=== PATIENT | female | born 1935 | race Caucasian/White ===

== ENCOUNTER 2017-12-13 14:46 | Emergency (ER) | payer MEDICARE, OTHER, SELFPAY ==
[2017-12-13 14:48] VITALS: BP 161/68; PULSE 71; RESP 20; TEMP 36.5; O2SAT 98; BMI 20.7
--- NOTE | 2017-12-13 14:51 | DI.RAD.S_ITS ---
PROCEDURE: XR RIBS RT MIN 3V W CXR 1V INDICATIONS: injury, pain TECHNIQUE: 2 views of the right ribs were acquired, along with a single view chest. COMPARISON: None. FINDINGS: Surgical changes and devices: None. Bones and chest wall: Slightly displaced fracture involving right posterior lateral seventh rib is seen. No suspicious bony lesions. Overlying soft tissues appear unremarkable. Lungs and pleura: No pleural effusions or pneumothorax. Lungs appear clear. Mediastinum: Mediastinal contours appear normal. Heart size is normal. IMPRESSION: Slightly displaced right posterolateral seventh rib fracture. Dictated by: Placido Chamorro M.D. on 12/13/2017 at 15:26 Approved by: Placido Chamorro M.D. on 12/13/2017 at 15:29
--- NOTE | 2017-12-13 16:11 | DI.CT.S_ITS ---
PROCEDURE: CT HEAD/BRAIN WO CON INDICATIONS: ground level fall TECHNIQUE: Noncontrast 4.5 mm thick angled axial sections acquired from the foramen magnum to the vertex, with coronal and sagittal reformats. For radiation dose reduction, the following was used: automated exposure control, adjustment of mA and/or kV according to patient size. COMPARISON: None. FINDINGS: Image quality: Excellent. CSF spaces: Basal cisterns are patent. No extra-axial fluid collections. The ventricles are symmetric in size and shape. Brain: No intracranial bleeds or masses. There is cerebral volume loss for age, with resultant ventricular and sulcal prominence. There are periventricular and deep white matter chronic small vessel ischemic changes. There is intracranial internal carotid artery atherosclerosis. Skull and face: Calvarium and visualized facial bones appear intact, without suspicious lesions. Sinuses: Visualized sinuses and mastoids are clear. IMPRESSION: No acute intracranial disease process. Dictated by: Gloria Parker MD, PhD on 12/13/2017 at 16:30 Approved by: Gloria Parker MD, PhD on 12/13/2017 at 16:33
--- NOTE | 2017-12-13 16:35 | PC.NURSE ---
Spoke w/ Dr. Giraldo's office. They have no history of tdap on file for patient.
--- NOTE | 2017-12-13 18:09 | ED.FALL ---
HPI - Fall <SOHEILA Genao-BC - Last Filed: 12/13/17 22:54> General Chief Complaint: Fall Stated Complaint: glf, hit her head on the floor Time Seen by Provider: 12/13/17 16:53 Source: patient and family Mode of arrival: ambulatory Limitations: no limitations History of Present Illness HPI Narrative: Patient presents after ground level fall this afternoon. She states she tripped over her dog. She denies any syncope or loss of consciousness. She complains of a laceration on her forehead above her right eye. She also complains of rib pain. She denies any dizziness, lightheadedness, loss of consciousness, neck pain or back pain. She denies any abdominal pain. Patient is adamant she fell when she tripped and did not have an episode of syncope. Related Data Home Medications Medication Instructions Recorded Confirmed B.ANI/L.ACI/L.PRAFUL/L.PLAN/L.KO 1 cap PO QDAY #0 12/03/10 (Probiotic Formula Capsule) Calcium Carbonate/Vitamin D 1 cap PO BID #0 12/03/10 (#CALCIUM) aspirin 81 mg PO QDAY #0 12/03/10 fexofenadine 180 mg PO QDAY #0 12/03/10 hydrochlorothiazide 25 mg PO QDAY #0 12/03/10 12/13/17 simvastatin 40 mg PO HS #0 12/03/10 12/13/17 epinephrine 1 dose IM PRN PRN 12/13/17 12/13/17 escitalopram oxalate 1 tab PO DAILY 12/13/17 12/13/17 fluticasone 2 spray INTRANASAL DAILY 12/13/17 12/13/17 omeprazole 1 cap PO DAILY 12/13/17 12/13/17 Previous Rx's Medication Instructions Recorded naproxen 250 mg PO BID PRN #30 tab 12/13/17 Allergies Allergy/AdvReac Type Severity Reaction Status Date / Time gluten [GLUTEN] Allergy Unknown diarrhea Unverified 06/07/17 12:00 Review of Systems <BRANDYN Genao - Last Filed: 12/13/17 22:54> Review of Systems GENERAL: Denies chills, fatigue, malaise, fever, sweats. HEENT: Denies sinus pain, ear pain, sore throat, difficulty swallowing, dizziness. RESPIRATORY: see HPI CARDIOVASCULAR: Denies chest pain, palpitations, orthopnea, edema, GASTROINTESTINAL: Denies nausea, vomiting, abdominal pain, diarrhea, constipation, melena. : Denies dysuria, frequency, incontinence, hematuria, urinary retention. MUSCULOSKELETAL: denies weakness, joint pain, or bony pain SKIN: See HPI NEUROLOGIC: Denies weakness, headache, numbness, change in speech, confusion, seizures, incoordination. PSYCHIATRIC: No concerning psychosocial issues. 12 point review of systems is negative except for those stated above Exam <Jayla Madden, SCRAP CHARGER-BC - Last Filed: 12/13/17 22:54> Narrative Exam Narrative: GENERAL: This is a well-nourished, well-developed patient, Lying on stretcher HEAD: Atraumatic. Normocephalic. No temporal or scalp tenderness. No pain to palpation of facial bones. No instability Or deformities palpated. EYES: Pupils equal round and reactive. Extraocular motions intact. No scleral icterus. No injection or drainage. ENT: Nose without bleeding, purulent drainage or septal hematoma. Throat without erythema, tonsillar hypertrophy or exudate. Uvula midline. Airway patent. NECK: Trachea midline. No JVD or lymphadenopathy. Supple, nontender, no meningeal signs. CARDIOVASCULAR: Regular rate and rhythm without murmurs, gallops, or rubs. RESPIRATORY: Clear to auscultation. Breath sounds equal bilaterally. No wheezes, rales, or rhonchi. Patient has pain to palpation right-sided of chest wall. Pain on anterior posterior chest wall compression as well as lateral chest wall compression. GASTROINTESTINAL: Abdomen soft, non-tender, nondistended. No hepato-splenomegaly, or palpable masses. No guarding. EXTREMITIES: No clubbing, cyanosis, or edema. No joint tenderness, effusion, or edema noted. BACK: Nontender without deformity or crepitance. No flank tenderness. no pain to palpation of C-spine or T-spine. NEURO: AOx3. Using all extremities equally. Stable gait. SKIN: 1 cm well-approximated linear laceration superior to right eye through eyebrow area. No obvious foreign bodies. No tendon or muscle involvement. Surrounded by ecchymosis. Initial Vital Signs Initial Vital Signs: Vital Signs Temperature 97.7 F 12/13/17 14:48 Pulse Rate 71 12/13/17 14:48 Respiratory Rate 20 12/13/17 14:48 Blood Pressure 161/68 H 12/13/17 14:48 Pulse Oximetry 98 12/13/17 14:48 <Roberto Coyle DO - Last Filed: 12/14/17 05:53> Initial Vital Signs Initial Vital Signs: Vital Signs Temperature 97.7 F 12/13/17 14:48 Pulse Rate 71 12/13/17 14:48 Respiratory Rate 20 12/13/17 14:48 Blood Pressure 161/68 H 12/13/17 14:48 Pulse Oximetry 98 12/13/17 14:48 Procedures <BRANDYN Genao - Last Filed: 12/13/17 22:54> Laceration Repair Laceration 1: Site: face Side (If applicable): right Size (cm): 1 Description: linear Depth: simple, single layer Pre-repair: wound explored and irrigated extensively ( sterile water and Hibiclens.) Skin layer closed with: other (dermabond) Course <BRANDYN Genao - Last Filed: 12/13/17 22:54> Orders Ordered: Discontinued Medications Ketorolac Tromethamine (Toradol) 30 mg IM NOW ONE Stop: 12/13/17 18:03 Last Admin: 12/13/17 18:33 Dose: 30 mg Vital Signs - 8 hr 12/13/17 19:43 Pulse Rate 75 Respiratory Rate 18 Blood Pressure 148/64 H Pulse Oximetry 97 <Roberto Coyle DO - Last Filed: 12/14/17 05:53> Orders Ordered: Discontinued Medications Ketorolac Tromethamine (Toradol) 30 mg IM NOW ONE Stop: 12/13/17 18:03 Last Admin: 12/13/17 18:33 Dose: 30 mg Vital Signs - 8 hr 12/13/17 19:43 Pulse Rate 75 Respiratory Rate 18 Blood Pressure 148/64 H Pulse Oximetry 97 MDM - Fall <BRANDYN Genao - Last Filed: 12/13/17 22:54> Imaging Data Chest x-ray: Radiologist's impression: [address] [address] XRay Report Signed Patient: Lupe Jean LMR#: [id number] : 5Acct:[id number] Age/Sex: 82 / FDate of Service: 12/13/17 Loc: ED Accession Number: [id number] Procedure: XR ribs RT min 3V w CXR1V Ordering Provider: Danyelle Singh MD PROCEDURE: XR RIBS RT MIN 3V W CXR 1V INDICATIONS: injury, pain TECHNIQUE: 2 views of the right ribs were acquired, along with a single view chest. COMPARISON: None. FINDINGS: Surgical changes and devices: None. Bones and chest wall: Slightly displaced fracture involving right posterior lateral seventh rib is seen. No suspicious bony lesions. Overlying soft tissues appear unremarkable. Lungs and pleura: No pleural effusions or pneumothorax. Lungs appear clear. Mediastinum: Mediastinal contours appear normal. Heart size is normal. IMPRESSION: Slightly displaced right posterolateral seventh rib fracture. Dictated by: Placido Chamorro M.D. on 12/13/2017 at 15:26 Approved by: Placido Chamorro M.D. on 12/13/2017 at 15:29 CT scan - head: Radiologist's impression: 1 Diagnostics DATE TYPE STATUS AUTHOR 12/13/17 16:11 Gloria Parker 12/13/17 14:51 Placido ChamorroYared cosbyluca Johansen 82, [id number] DEP ER, ED - Main ED: [place] 152.4cm 48.081kg BMI: 20.7kg/m? Fall Search Chart NF - Not included in interaction checking gluten (GLUTEN) diarrhea ONSET Today 19:43 [place] [address] CT Scan Report Signed Patient: uLpe Jean LMR#: [id number] : 5Acct:[id number] Age/Sex: 82 / FDate of Service: 12/13/17 Loc: ED Accession Number: [id number] Procedure: CT head/brain wo con Ordering Provider: Jayla Madden PROCEDURE: CT HEAD/BRAIN WO CON INDICATIONS: ground level fall TECHNIQUE: Noncontrast 4.5 mm thick angled axial sections acquired from the foramen magnum to the vertex, with coronal and sagittal reformats. For radiation dose reduction, the following was used: automated exposure control, adjustment of mA and/or kV according to patient size. COMPARISON: None. FINDINGS: Image quality: Excellent. CSF spaces: Basal cisterns are patent. No extra-axial fluid collections. The ventricles are symmetric in size and shape. Brain: No intracranial bleeds or masses. There is cerebral volume loss for age, with resultant ventricular and sulcal prominence. There are periventricular and deep white matter chronic small vessel ischemic changes. There is intracranial internal carotid artery atherosclerosis. Skull and face: Calvarium and visualized facial bones appear intact, without suspicious lesions. Sinuses: Visualized sinuses and mastoids are clear. IMPRESSION: No acute intracranial disease process. Dictated by: Gloria Parker MD, PhD on 12/13/2017 at 16:30 Approved by: Gloria Parker MD, PhD on 12/13/2017 at 16:33 [facility] Narrative Medical decision making narrative: patient presents with chief complaint of laceration after ground level fall. She also complained of rib pain. She was found have a rib fracture as well as a laceration. She had a negative head CT. I offered her pain medications several times throughout her stay for her rib fractures but she declined. I offered her narcotic pain medication prescription upon discharge which she also declined. She was also evaluated by respiratory therapist to work on incentive spirometry given her rib fracture. I closed the laceration with Dermabond and she tolerated ambulation trial after. I discussed monitoring for signs and symptoms of infection. She had no questions or concerns upon discharge. I discussed return precautions of signs of infection, confusion any acute concerns. patient and daughter no questions or concerns upon discharge. Discharge Plan Departure Patient Disposition: Home Clinical Impression: Fall from ground level, Laceration, Closed rib fracture Discharge Date/Time: 12/13/17 19:00 Interventions: ED Discharge Assessment Last Done: 12/13/17 19:43 Instructions: DI for Rib Fracture, DI for Laceration Repair With Dermabond, DI for Contusion, How to Prevent Falls Activity Restrictions/Additional Instructions: Please follow up with primary care provider. Please continue to take deep breathing. Please take [id number] pain medication as needed and able. Please use ice. Come back to the emergency department for acute concerns. Please continue to use the incentive spirometer. Prescriptions: New naproxen 250 mg tablet 250 mg PO BID PRN (Reason: pain) Qty: 30 RF: 0 No Action fexofenadine 180 MG tablet 180 mg PO QDAY Qty: 0 RF: 0 aspirin 81 MG tablet,delayed release (DR/EC) 81 mg PO QDAY Qty: 0 RF: 0 Calcium Carbonate/Vitamin D (#CALCIUM) 1 cap PO BID Qty: 0 RF: 0 B.ANI/L.ACI/L.PRAFUL/L.PLAN/L.KO (Probiotic Formula Capsule) 1 cap PO QDAY Qty: 0 RF: 0 hydrochlorothiazide 25 MG tablet 25 mg PO QDAY Qty: 0 RF: 0 simvastatin 40 MG tablet 40 mg PO HS Qty: 0 RF: 0 omeprazole 40 mg capsule,delayed release(DR/EC) 1 cap PO DAILY RF: 0 epinephrine 0.3 mg/0.3 mL auto-injector 1 dose IM PRN PRN (Reason: Anaphylaxis) RF: 0 fluticasone 50 mcg/actuation spray,suspension 2 spray Intranasal DAILY RF: 0 escitalopram oxalate 10 mg tablet 1 tab PO DAILY RF: 0 Referrals: Mauricio Giraldo MD [Primary Care Provider] - <Roberto Coyle DO - Last Filed: 12/14/17 05:53> Cosign ED Attending Cosignature Attestation: I was immediately available in the department for consultation. Documentation has been reviewed. I agree with assessment and plan.
--- NOTE | 2017-12-13 18:12 | ED_ITS ---
HPI - Fall <SOHEILA Genao-BC - Last Filed: 12/13/17 22:54> General Chief Complaint: Fall Stated Complaint: glf, hit her head on the floor Time Seen by Provider: 12/13/17 16:53 Source: patient and family Mode of arrival: ambulatory Limitations: no limitations History of Present Illness HPI Narrative: Patient presents after ground level fall this afternoon. She states she tripped over her dog. She denies any syncope or loss of consciousness. She complains of a laceration on her forehead above her right eye. She also complains of rib pain. She denies any dizziness, lightheadedness , loss of consciousness, neck pain or back pain. She denies any abdominal pain. Patient is adamant she fell when she tripped and did not have an episode of syncope. Related Data Home Medications Medication Instructions Recorded Confirmed B.ANI/L.ACI/L.PRAFUL/L.PLAN/L.KO 1 cap PO QDAY #0 12/03/10 (Probiotic Formula Capsule) Calcium Carbonate/Vitamin D 1 cap PO BID #0 12/03/10 (#CALCIUM) aspirin 81 mg PO QDAY #0 12/03/10 fexofenadine 180 mg PO QDAY #0 12/03/10 hydrochlorothiazide 25 mg PO QDAY #0 12/03/10 12/13/17 simvastatin 40 mg PO HS #0 12/03/10 12/13/17 epinephrine 1 dose IM PRN PRN 12/13/17 12/13/17 escitalopram oxalate 1 tab PO DAILY 12/13/17 12/13/17 fluticasone 2 spray INTRANASAL DAILY 12/13/17 12/13/17 omeprazole 1 cap PO DAILY 12/13/17 12/13/17 Previous Rx's Medication Instructions Recorded naproxen 250 mg PO BID PRN #30 tab 12/13/17 Allergies Allergy/AdvReac Type Severity Reaction Status Date / Time gluten [GLUTEN] Allergy Unknown diarrhea Unverified 06/07/17 12:00 Review of Systems <BRANDYN Genao - Last Filed: 12/13/17 22:54> Review of Systems GENERAL: Denies chills, fatigue, malaise, fever, sweats. HEENT: Denies sinus pain, ear pain, sore throat, difficulty swallowing, dizziness. RESPIRATORY: see HPI CARDIOVASCULAR: Denies chest pain, palpitations, orthopnea, edema, GASTROINTESTINAL: Denies nausea, vomiting, abdominal pain, diarrhea, constipation, melena. : Denies dysuria, frequency, incontinence, hematuria, urinary retention. MUSCULOSKELETAL: denies weakness, joint pain, or bony pain SKIN: See HPI NEUROLOGIC: Denies weakness, headache, numbness, change in speech, confusion, seizures, incoordination. PSYCHIATRIC: No concerning psychosocial issues. 12 point review of systems is negative except for those stated above Exam <Jayla Madden, PULVERIZER MILL OPERATOR-BC - Last Filed: 12/13/17 22:54> Narrative Exam Narrative: GENERAL: This is a well-nourished, well-developed patient, Lying on stretcher HEAD: Atraumatic. Normocephalic. No temporal or scalp tenderness. No pain to palpation of facial bones. No instability Or deformities palpated. EYES: Pupils equal round and reactive. Extraocular motions intact. No scleral icterus. No injection or drainage. ENT: Nose without bleeding, purulent drainage or septal hematoma. Throat without erythema, tonsillar hypertrophy or exudate. Uvula midline. Airway patent. NECK: Trachea midline. No JVD or lymphadenopathy. Supple, nontender, no meningeal signs. CARDIOVASCULAR: Regular rate and rhythm without murmurs, gallops, or rubs. RESPIRATORY: Clear to auscultation. Breath sounds equal bilaterally. No wheezes , rales, or rhonchi. Patient has pain to palpation right-sided of chest wall. Pain on anterior posterior chest wall compression as well as lateral chest wall compression. GASTROINTESTINAL: Abdomen soft, non-tender, nondistended. No hepato-splenomegaly , or palpable masses. No guarding. EXTREMITIES: No clubbing, cyanosis, or edema. No joint tenderness, effusion, or edema noted. BACK: Nontender without deformity or crepitance. No flank tenderness. no pain to palpation of C-spine or T-spine. NEURO: AOx3. Using all extremities equally. Stable gait. SKIN: 1 cm well-approximated linear laceration superior to right eye through eyebrow area. No obvious foreign bodies. No tendon or muscle involvement. Surrounded by ecchymosis. Initial Vital Signs Initial Vital Signs: Vital Signs Temperature 97.7 F 12/13/17 14:48 Pulse Rate 71 12/13/17 14:48 Respiratory Rate 20 12/13/17 14:48 Blood Pressure 161/68 H 12/13/17 14:48 Pulse Oximetry 98 12/13/17 14:48 <Roberto Coyle DO - Last Filed: 12/14/17 05:53> Initial Vital Signs Initial Vital Signs: Vital Signs Temperature 97.7 F 12/13/17 14:48 Pulse Rate 71 12/13/17 14:48 Respiratory Rate 20 12/13/17 14:48 Blood Pressure 161/68 H 12/13/17 14:48 Pulse Oximetry 98 12/13/17 14:48 Procedures <BRANDYN Genao - Last Filed: 12/13/17 22:54> Laceration Repair Laceration 1: Site: face Side (If applicable): right Size (cm): 1 Description: linear Depth: simple, single layer Pre-repair: wound explored and irrigated extensively ( sterile water and Hibiclens.) Skin layer closed with: other (dermabond) Course <BRANDYN Genao - Last Filed: 12/13/17 22:54> Orders Ordered: Discontinued Medications Ketorolac Tromethamine (Toradol) 30 mg IM NOW ONE Stop: 12/13/17 18:03 Last Admin: 12/13/17 18:33 Dose: 30 mg Vital Signs - 8 hr 12/13/17 19:43 Pulse Rate 75 Respiratory Rate 18 Blood Pressure 148/64 H Pulse Oximetry 97 <Roberto Coyle DO - Last Filed: 12/14/17 05:53> Orders Ordered: Discontinued Medications Ketorolac Tromethamine (Toradol) 30 mg IM NOW ONE Stop: 12/13/17 18:03 Last Admin: 12/13/17 18:33 Dose: 30 mg Vital Signs - 8 hr 12/13/17 19:43 Pulse Rate 75 Respiratory Rate 18 Blood Pressure 148/64 H Pulse Oximetry 97 MDM - Fall <BRANDYN Genao - Last Filed: 12/13/17 22:54> Imaging Data Chest x-ray: Radiologist's impression: [address] [address] XRay Report Signed Patient: Lupe Jean LMR#: [id number] : 5Acct:[id number] Age/Sex: 82 / FDate of Service: 12/13/17 Loc: ED Accession Number: [id number] Procedure: XR ribs RT min 3V w CXR1V Ordering Provider: Danyelle Singh MD PROCEDURE: XR RIBS RT MIN 3V W CXR 1V INDICATIONS: injury, pain TECHNIQUE: 2 views of the right ribs were acquired, along with a single view chest. COMPARISON: None. FINDINGS: Surgical changes and devices: None. Bones and chest wall: Slightly displaced fracture involving right posterior lateral seventh rib is seen. No suspicious bony lesions. Overlying soft tissues appear unremarkable. Lungs and pleura: No pleural effusions or pneumothorax. Lungs appear clear. Mediastinum: Mediastinal contours appear normal. Heart size is normal. IMPRESSION: Slightly displaced right posterolateral seventh rib fracture. Dictated by: Placido Chamorro M.D. on 12/13/2017 at 15:26 Approved by: Placido Chamorro M.D. on 12/13/2017 at 15:29 CT scan - head: Radiologist's impression: 1 Diagnostics DATE TYPE STATUS AUTHOR 12/13/17 16:11 Gloria Parker 12/13/17 14:51 Placido ChamorroYared cosbyluca Johansen 82, [id number] DEP ER, ED - Main ED: [place] 152.4cm 48.081kg BMI: 20.7kg/m? Fall Search Chart NF - Not included in interaction checking gluten (GLUTEN) diarrhea ONSET Today 19:43 [place] [address] CT Scan Report Signed Patient: Lupe Jean LMR#: [id number] : 5Acct:[id number] Age/Sex: 82 / FDate of Service: 12/13/17 Loc: ED Accession Number: [id number] Procedure: CT head/brain wo con Ordering Provider: Jayla Madden PROCEDURE: CT HEAD/BRAIN WO CON INDICATIONS: ground level fall TECHNIQUE: Noncontrast 4.5 mm thick angled axial sections acquired from the foramen magnum to the vertex, with coronal and sagittal reformats. For radiation dose reduction, the following was used: automated exposure control, adjustment of mA and/or kV according to patient size. COMPARISON: None. FINDINGS: Image quality: Excellent. CSF spaces: Basal cisterns are patent. No extra-axial fluid collections. The ventricles are symmetric in size and shape. Brain: No intracranial bleeds or masses. There is cerebral volume loss for age , with resultant ventricular and sulcal prominence. There are periventricular and deep white matter chronic small vessel ischemic changes. There is intracranial internal carotid artery atherosclerosis. Skull and face: Calvarium and visualized facial bones appear intact, without suspicious lesions. Sinuses: Visualized sinuses and mastoids are clear. IMPRESSION: No acute intracranial disease process. Dictated by: Gloria Parker MD, PhD on 12/13/2017 at 16:30 Approved by: Gloria Parker MD, PhD on 12/13/2017 at 16:33 [facility] Narrative Medical decision making narrative: patient presents with chief complaint of laceration after ground level fall. She also complained of rib pain. She was found have a rib fracture as well as a laceration. She had a negative head CT. I offered her pain medications several times throughout her stay for her rib fractures but she declined. I offered her narcotic pain medication prescription upon discharge which she also declined. She was also evaluated by respiratory therapist to work on incentive spirometry given her rib fracture. I closed the laceration with Dermabond and she tolerated ambulation trial after. I discussed monitoring for signs and symptoms of infection. She had no questions or concerns upon discharge. I discussed return precautions of signs of infection, confusion any acute concerns. patient and daughter no questions or concerns upon discharge. Discharge Plan Departure Patient Disposition: Home Clinical Impression: Fall from ground level, Laceration, Closed rib fracture Discharge Date/Time: 12/13/17 19:00 Interventions: ED Discharge Assessment Last Done: 12/13/17 19:43 Instructions: DI for Rib Fracture, DI for Laceration Repair With Dermabond, DI for Contusion, How to Prevent Falls Activity Restrictions/Additional Instructions: Please follow up with primary care provider. Please continue to take deep breathing. Please take [id number] pain medication as needed and able. Please use ice. Come back to the emergency department for acute concerns. Please continue to use the incentive spirometer. Prescriptions: New naproxen 250 mg tablet 250 mg PO BID PRN (Reason: pain) Qty: 30 RF: 0 No Action fexofenadine 180 MG tablet 180 mg PO QDAY Qty: 0 RF: 0 aspirin 81 MG tablet,delayed release (DR/EC) 81 mg PO QDAY Qty: 0 RF: 0 Calcium Carbonate/Vitamin D (#CALCIUM) 1 cap PO BID Qty: 0 RF: 0 B.ANI/L.ACI/L.PRAFUL/L.PLAN/L.KO (Probiotic Formula Capsule) 1 cap PO QDAY Qty: 0 RF: 0 hydrochlorothiazide 25 MG tablet 25 mg PO QDAY Qty: 0 RF: 0 simvastatin 40 MG tablet 40 mg PO HS Qty: 0 RF: 0 omeprazole 40 mg capsule,delayed release(DR/EC) 1 cap PO DAILY RF: 0 epinephrine 0.3 mg/0.3 mL auto-injector 1 dose IM PRN PRN (Reason: Anaphylaxis) RF: 0 fluticasone 50 mcg/actuation spray,suspension 2 spray Intranasal DAILY RF: 0 escitalopram oxalate 10 mg tablet 1 tab PO DAILY RF: 0 Referrals: Mauricio Giraldo MD [Primary Care Provider] - <Robetro Coyle DO - Last Filed: 12/14/17 05:53> Cosign ED Attending Cosignature Attestation: I was immediately available in the department for consultation. Documentation has been reviewed. I agree with assessment and plan.
[2017-12-13] MEDS: KETOROLAC 60 MG/2 ML VIAL 30 MG IM (18:33)
[2017-12-13 19:43] VITALS: BP 148/64; PULSE 75; RESP 18; O2SAT 97
== END 2017-12-13 19:00 | disposition home or self-care (01) ==
PROVIDERS: Emergency Provider Nurse Practitioner Family; PCP Internal Medicine
DX: S01.81XA Laceration without foreign body of other part of head, initial encounter (principal); S22.39XA Fracture of one rib, unspecified side, initial encounter for closed fracture; W01.198A Fall on same level from slipping, tripping and stumbling with subsequent striking against other object, initial encounter
CPT/HCPCS: 70450; 71101; 96372; 99283; 99284; J1885

== ENCOUNTER → 2018-03-03 10:30 | Outpatient (CLI) | payer MEDICARE, OTHER, SELFPAY ==
[2018-03-03 12:27] LABS: Adenovirus F 40/41 Not Detected (Not Detect); Astrovirus Not Detected (Not Detect); Campylobacter Not Detected (Not Detect); Clostridium difficile toxin AB Not Detected (Not Detect); Cryptosporidium Not Detected (Not Detect); Cyclospora cayetanensis Not Detected (Not Detect); Entamoeba histolytica Not Detected (Not Detect); Enteroaggregative E.coli Not Detected (Not Detect); Enteropathogenic E.coli Not Detected (Not Detect); Enterotoxigenic E.coli It/st Not Detected (Not Detect); Giardia lamblia Not Detected (Not Detect); Norovirus GI/GII Detected (Not Detect); Plesiomonsa shigelloides Not Detected (Not Detect); Rotavirus A Not Detected (Not Detect); Salmonella Not Detected (Not Detect); Sapovirus Not Detected (Not Detect); Shiga-like toxin-prod E.coli Not Detected (Not Detect); Shigella/Enteroinvasive E.coli Not Detected (Not Detect); Vibrio Not Detected (Not Detect); Vibrio cholerae Not Detected (Not Detect); Yersinia enterocolitica Not Detected (Not Detect)
== END ==
PROVIDERS: PCP Internal Medicine; Visit Provider Physician Assistant
DX: R19.7 Diarrhea, unspecified (principal)
CPT/HCPCS: 87507

== ENCOUNTER → 2018-03-28 12:19 | Outpatient (CLI) | payer MEDICARE, OTHER, SELFPAY ==
--- NOTE | 2018-03-28 | DI.MG.S_ITS ---
BILATERAL DIGITAL SCREENING MAMMOGRAM 3D/2D WITH CAD: 03/28/2018 CLINICAL: Routine screening. Comparison is made to exams dated: 11/24/2016 mammogram, 11/19/2015 mammogram, and 11/12/2014 mammogram - [facility]. The tissue of both breasts is heterogeneously dense. This may lower the sensitivity of mammography. Current study was also evaluated with a Computer Aided Detection (CAD) system. No significant masses, calcifications, or other findings are seen in either breast. There has been no significant interval change. IMPRESSION: NEGATIVE There is no mammographic evidence of malignancy. A 1 year screening mammogram is recommended. This exam was interpreted at Station ID: [id number]. NOTE: For mammograms, a report in lay terms will be sent to the patient. Approximately 15% of breast malignancies will not be visualized mammographically. In the management of a palpable breast mass, a negative mammogram must not discourage biopsy of a clinically suspicious lesion. Electronically Signed By: Jhoana mccullough/[email or web address]:03/28/2018 16:30:02 letter sent: Normal Exam ACR BI-RADS Category 1: Negative [id number]
== END ==
PROVIDERS: PCP Internal Medicine; Visit Provider Internal Medicine
DX: Z12.31 Encounter for screening mammogram for malignant neoplasm of breast (principal); M85.88 Other specified disorders of bone density and structure, other site; M85.851 Other specified disorders of bone density and structure, right thigh; Z78.0 Asymptomatic menopausal state; S22.31XA Fracture of one rib, right side, initial encounter for closed fracture; Z87.891 Personal history of nicotine dependence
CPT/HCPCS: 77063; 77067; 77080

== ENCOUNTER → 2018-04-30 09:16 | Outpatient (CLI) | payer MEDICARE, OTHER, SELFPAY ==
[2018-04-30 09:53] LABS: Add Manual Diff / Slide Review NO; Basophils Absolute Auto 0 /uL (0-100); Basophils Percent Auto 0.7 % (0-2); Eosinophils Absolute Auto 100 /uL (0-450); Hematocrit 37.4 % (36-46); Hemoglobin 12.2 g/dL (12.0-16.0); Lymphocytes Absolute Auto 1800 /uL (1100-4500); Lymphocytes Percent Auto 27.3 % (25-40); Mean Corpuscular HGB Conc 32.7 % (30-36); Mean Corpuscular Hemoglobin 28.1 PG (26-34); Mean Corpuscular Volume 85.8 fL (80-100); Monocytes Absolute Auto 600 /uL (0-900); Monocytes Percent Auto 8.4 % (3-14); Neutrophils Absolute Auto 4100 /uL (1500-7000); Neutrophils Percent Auto 61.6 % (50-75); Platelet Count 315 X10^3/uL (150-400); Red Blood Cell Count 4.36 X10^6/uL (4.0-5.2); White Blood Cell Count 6.6 X10^3/uL (4.5-11.0)
[2018-04-30 10:41] LABS: Alanine Aminotransferase 23 IU/L (9-52); Albumin 4.2 g/dL (3.5-5.0); Albumin Globulin Ratio 1.3 (1.0-2.8); Alkaline Phosphatase 62 U/L (38-126); Aspartate Aminotransferase 27 IU/L (14-36); BUN Creatinine Ratio 19.1 (6-22); Bilirubin Total 0.5 mg/dL (0.2-1.3); Blood Urea Nitrogen 21 mg/dL (7-17); Calcium 9.8 mg/dL (8.4-10.2); Carbon Dioxide 31 mmol/L (22-32); Chloride 98 mmol/L (98-107); Cholesterol 141 mg/dL (140-199); Estimated Glomerular Filt Rate 47.4 mL/min (>60); Globulin 3.3 g/dL (1.7-4.1); Glucose 88 mg/dL (80-110); HDL Cholesterol 35 mg/dL (40-60); HEMOLYSIS < 15 (0-50); LDL Cholesterol Calculated 81 mg/dL (<100); Potassium 4.1 mmol/L (3.4-5.1); Sodium 139 mmol/L (137-145); Total Protein 7.5 g/dL (6.3-8.2); Triglycerides 123 mg/dL (35-150)
== END ==
PROVIDERS: PCP Internal Medicine; Visit Provider Internal Medicine
DX: M48.061 Spinal stenosis, lumbar region without neurogenic claudication (principal); M85.80 Other specified disorders of bone density and structure, unspecified site; K58.0 Irritable bowel syndrome with diarrhea; I10 Essential (primary) hypertension; E78.00 Pure hypercholesterolemia, unspecified
CPT/HCPCS: 36415; 80053; 80061; 82306; 85025

== ENCOUNTER → 2018-05-29 12:39 | Outpatient (CLI) | payer MEDICARE, OTHER, SELFPAY ==
[2018-05-29 13:30] LABS: Occult Blood 1 Negative (Negative)
== END ==
PROVIDERS: PCP Internal Medicine; Visit Provider Internal Medicine
DX: R19.7 Diarrhea, unspecified (principal)
CPT/HCPCS: 82270; 82710; 87045; 87205; 87899

== ENCOUNTER → 2018-05-30 13:05 | Outpatient (CLI) | payer MEDICARE, OTHER, SELFPAY ==
[2018-05-30 13:28] LABS: Add Manual Diff / Slide Review NO; Basophils Absolute Auto 0 /uL (0-100); Basophils Percent Auto 0.4 % (0-2); Eosinophils Absolute Auto 300 /uL (0-450); Eosinophils Percent Auto 2.7 % (2-4); Hematocrit 34.8 % (36-46); Hemoglobin 11.4 g/dL (12.0-16.0); Lymphocytes Absolute Auto 1700 /uL (1100-4500); Lymphocytes Percent Auto 17.6 % (25-40); Mean Corpuscular HGB Conc 32.7 % (30-36); Mean Corpuscular Hemoglobin 27.8 PG (26-34); Monocytes Absolute Auto 1100 /uL (0-900); Monocytes Percent Auto 11.3 % (3-14); Neutrophils Absolute Auto 6500 /uL (1500-7000); Platelet Count 322 X10^3/uL (150-400); Red Cell Distribution Width 12.5 % (11.6-14.8); White Blood Cell Count 9.5 X10^3/uL (4.5-11.0)
[2018-05-30 14:22] LABS: Blood Urea Nitrogen 34 mg/dL (7-17); Calcium 8.7 mg/dL (8.4-10.2); Carbon Dioxide 28 mmol/L (22-32); Chloride 98 mmol/L (98-107); Estimated Glomerular Filt Rate 28.7 mL/min (>60); Glucose 64 mg/dL (80-110); HEMOLYSIS < 15 (0-50); Potassium 4.1 mmol/L (3.4-5.1); Sodium 134 mmol/L (137-145)
== END ==
PROVIDERS: PCP Internal Medicine; Visit Provider Internal Medicine
DX: N18.3 Chronic kidney disease, stage 3 (moderate) (principal)
CPT/HCPCS: 36415; 80048; 85025

== ENCOUNTER → 2018-06-29 13:33 | Outpatient (CLI) | payer MEDICARE, OTHER, SELFPAY ==
--- NOTE | 2018-06-29 | DI.US.S_ITS ---
PROCEDURE: US RENAL COMPLETE INDICATIONS: ACUTE ON CHRONIC RENAL FAILURE TECHNIQUE: Real-time scanning was performed of the kidneys and bladder, with image documentation. COMPARISON: , US, RENAL OR RETROPERITONEAL LIMIT, 07/22/2014, 14:56. FINDINGS: Kidneys: Kidneys are normal in size. Right kidney measures 9.2 cm long; left kidney measures 9.9 cm long. Right renal cortical thickness is 0.8 cm; left renal cortical thickness is 1.2 cm. Renal cortical echotexture is normal. No hydronephrosis or nephrolithiasis. No suspicious solid mass lesions. Bladder: Pre-void bladder volume is 91 mL. Post-void residual is 54 mL. Pre-void images demonstrate no intraluminal masses or stones. On pre-void images, neither ureteral jets are noted with color Doppler interrogation. (Of note, ureteral jets may not be detectable in up to 25% of cases due to insufficient differences in specific gravity between ureteral and bladder urine). Miscellaneous: No free pelvic fluid. IMPRESSION: 1. Mild right renal cortical thinning; otherwise normal kidneys. 2. 54 cc urinary bladder postvoid residual. Dictated by: Liam Kiran [facility] Interpreted: Zofia Stanton MD on 06/29/2018 at 16:27 Approved by: Zofia Stanton M.D. on 07/02/2018 at 17:32
== END ==
PROVIDERS: PCP Internal Medicine; Visit Provider Student in an Organized Health Care Education/Training Program
DX: N17.9 Acute kidney failure, unspecified (principal); N18.9 Chronic kidney disease, unspecified
CPT/HCPCS: 76770

== ENCOUNTER → 2018-07-04 13:20 | Outpatient (CLI) | payer MEDICARE, OTHER, SELFPAY ==
[2018-07-04 14:27] LABS: BUN Creatinine Ratio 18.2 (6-22); Blood Urea Nitrogen 20 mg/dL (7-17); Carbon Dioxide 28 mmol/L (22-32); Chloride 97 mmol/L (98-107); Estimated Glomerular Filt Rate 47.4 mL/min (>60); Glucose 92 mg/dL (80-110); HEMOLYSIS 22 (0-50); Potassium 4.4 mmol/L (3.4-5.1); Sodium 136 mmol/L (137-145)
== END ==
PROVIDERS: Family Provider Internal Medicine; PCP Internal Medicine; Visit Provider Student in an Organized Health Care Education/Training Program
DX: N05.9 Unspecified nephritic syndrome with unspecified morphologic changes (principal)
CPT/HCPCS: 36415; 80048

== ENCOUNTER → 2018-07-24 13:18 | Outpatient (CLI) | payer MEDICARE, OTHER, SELFPAY ==
[2018-07-24 13:34] LABS: Bacteria Urine None Seen; RBC Urine None Seen (0-5/HPF)
[2018-07-24 14:10] LABS: Hematocrit 31.1 % (36-46); Hemoglobin 10.7 g/dL (12.0-16.0)
[2018-07-24 14:22] LABS: Appearance Urine UA CLEAR; Bilirubin Urine UA NEGATIVE (NEGATIVE); Color Urine UA YELLOW; Glucose Urine UA NEGATIVE (Negative); Ketones Urine UA NEGATIVE (NEGATIVE); Leukocyte Esterase Urine UA NEGATIVE (NEGATIVE); Nitrite Urine UA NEGATIVE (Negative); Occult Blood Urine UA NEGATIVE (Negative); Protein Urine UA NEGATIVE (Negative); Urobilinogen Urine UA 0.2 E.U./dL (0.2); pH Urine UA 5.5 (4.5-8.0)
[2018-07-24 14:33] LABS: HEMOLYSIS < 15 (0-50); Iron 89 ug/dL (37-170)
[2018-07-24 14:42] LABS: Culture Indicated Urine Cult Not Indicated; Squamous Epithelial Cell Urine 0-1 /HPF (0-5/HPF); WBC Urine 0-1/HPF (0-5/HPF)
[2018-07-24 14:44] LABS: Percent Iron Saturation 36 % (15-50); Total Iron Binding Capacity 246 ug/dL (265-497); Transferrin 180 mg/dL (206-381)
[2018-07-24 16:18] LABS: Creatinine Urine Random 27.4 mg/dL; Protein (Total) Urine Random 15 mg/dL (0-12); Protein Creatinine Ratio Urine 0.54 GRAM/24H
[2018-07-24 16:54] LABS: BUN Creatinine Ratio 16.2 (6-22); Blood Urea Nitrogen 21 mg/dL (7-17); Calcium 9.4 mg/dL (8.4-10.2); Carbon Dioxide 31 mmol/L (22-32); Chloride 97 mmol/L (98-107); Estimated Glomerular Filt Rate 39.1 mL/min (>60); Glucose 82 mg/dL (80-110); HEMOLYSIS < 15 (0-50); Phosphorous 4.2 mg/dL (2.8-4.1); Potassium 4.4 mmol/L (3.4-5.1); Sodium 137 mmol/L (137-145)
[2018-07-28 15:53] LABS: Parathyroid Hormone Int 67 pg/mL (14-64)
== END ==
PROVIDERS: Family Provider Internal Medicine; PCP Internal Medicine; Visit Provider Student in an Organized Health Care Education/Training Program
DX: N17.9 Acute kidney failure, unspecified (principal); N18.9 Chronic kidney disease, unspecified
CPT/HCPCS: 36415; 80048; 81001; 82570; 82728; 83540; 83550; 83970; 84100; 84156; 85014; 85018

== ENCOUNTER → 2018-10-13 13:34 | Outpatient (CLI) | payer MEDICARE, OTHER, SELFPAY ==
--- NOTE | 2018-10-13 | DI.RAD.S_ITS ---
PROCEDURE: XR WRIST LT MIN 3V INDICATIONS: ULNAR NEUROPATHY LUE TECHNIQUE: 4 views of the wrist were acquired. COMPARISON: None. FINDINGS: Bones: No acute fractures or dislocations. There is a remote fracture fragment seen distal to the radial styloid, which is attributed to a remote radial styloid fracture. No suspicious bony lesions. Advanced degenerative changes are seen in the 1st carpometacarpal joint, with prominent joint space narrowing with associated subchondral sclerosis and irregularity. Reglan osteophytes are seen. Milder degenerative changes are seen elsewhere. There is a widened scapholunate interface. Scaphoid view: No navicular fractures are seen. Soft tissues: No suspicious soft tissue calcifications. IMPRESSION: Advanced degenerative changes are seen, which are most prominent involving the 1st carpometacarpal joint. Widened scapholunate interface. A scapholunate ligament tear is presumed. If it would be helpful for clinical management decision making, please consider a dedicated wrist arthrogram for further evaluation (assuming that there is no contraindication). Remote radial styloid fracture. Dictated by: Gilmar Rangel M.D. on 10/13/2018 at 14:15 Approved by: Gilmar Rangel M.D. on 10/13/2018 at 14:17
--- NOTE | 2018-10-13 | DI.RAD.S_ITS ---
PROCEDURE: XR ELBOW LT MIN 3V INDICATIONS: ULNAR NEUROPATHY LUE TECHNIQUE: 3 views of the elbow were acquired. COMPARISON: None. FINDINGS: Bones: No fractures or dislocations. No suspicious bony lesions. Age-appropriate bony degenerative changes are seen. Soft tissues: No elbow joint effusion. No suspicious soft tissue calcifications. IMPRESSION: Unremarkable imaging examination for age. Dictated by: Gilmar Rangel M.D. on 10/13/2018 at 14:17 Approved by: Gilmar Rangel M.D. on 10/13/2018 at 14:17
== END ==
PROVIDERS: Family Provider Internal Medicine; PCP Internal Medicine; Visit Provider Internal Medicine
DX: G56.22 Lesion of ulnar nerve, left upper limb (principal)
CPT/HCPCS: 73080; 73110

== ENCOUNTER 2018-12-27 08:40 | Day surgery (SDC) | payer MEDICARE, OTHER, SELFPAY ==
[2018-12-24 12:44] VITALS: BMI 21.4
[2018-12-27] VITALS (7 sets, daily range): BP systolic 86–176; BP diastolic 38–74; PULSE 59–72; RESP 9–24; TEMP 35.9–36.8; O2SAT 2–97; BMI 20.6
[2018-12-27] MEDS: LACTATED RINGERS 1,000 ML 42 ML IV (09:45)
--- NOTE | 2018-12-27 10:17 | SUR.PREOP ---
Spoke with Dr. Aguilar about antibiotic order.
[2018-12-27] MEDS: CEFAZOLIN 1 GM/50 ML FROZ.PIGGY IV (10:45)
--- NOTE | 2018-12-27 10:45 | PM.PREOP ---
Pre-operative Note Interval Note History & Physical reviewed/Exam performed by Physician: Yes Changes to H&P: No
--- NOTE | 2018-12-27 11:16 | SUR.OPER ---
Supine on padded OR bed, head on pillow, right arm secured on padded arm board at <90 degrees abduction,Left arm on large padded armboard controlled by surgical team, legs uncrossed, safety belt at thigh.
[2018-12-27] MEDS: BUPIVACAINE 0.5% W/ EPI (PF) VIAL 30 ML INJ (11:24)
--- NOTE | 2018-12-27 11:45 | P.OP_ITS ---
Operative Date/Time/Diagnoses Date of procedure: 12/27/18 Time of procedure: 11:00 Pre-op diagnosis: Left carpal tunnel and cubital tunnel Post-op diagnosis: same Procedure & Clinicians Procedure: Left carpal tunnel and cubital tunnel release Same procedure as scheduled: Yes Indications: Compression of the median nerve at the carpal tunnel with compression of the ulnar nerve at the cubital tunnel Surgeon: Matt Aguilar Math [employer] Physics Instructor: Rachael Guajardo Anesthesia Type: General Operative Notes Findings: Compression of both the median and ulnar nerve. No sign of any significant hourglassing or flattening of median or ulnar nerve Closure Type: primary Specimen(s): none sent Estimated Blood Loss (mL): 0 Blood products transfused: none Tourniquet time (min): 22 Procedure in detail: On date of service, the patient was met in the holding area. Patients operative site was signed and witnessed by the OR staff. The surgery was once again discussed with the patient, and any remaining questions they had were answered fully. Patient was taken back to the operating theater and placed on the operating table in a supine position. Great care was taken to ensure that all bony prominences were carefully padded. A well-padded tourniquet was placed up along the upper extremity. A timeout was performed to verify patient's name, procedure, and operative site. The arm was then prepped and draped in the normal sterile fashion. A 15 blade was used to incise through skin In the center of the palm. Pickups and tenotomy scissors were used to dissect down until the palmar fascia was visualized. The palmar fascia was then sharply incised using a 15 blade. This gave us good visualization of the carpal ligament. A small opening was made into the carpal ligament, and a curved hemostat was placed into that opening. A 15 blade was the n used to sharply incise the carpal ligament with the structures beneath being protected by the hemostat. Pickups and Metzenbaum scissors were used to complete the decompression both distally and proximally. This provided a complete decompression of the median nerve. Wound was irrigated and then closed with nylon. We then turned our attention to the cubital tunnel. Ten blade was used to make an incision centered over the cubital tunnel. Ten blade was used incise through skin and fascial tissue. Electrocautery was used to achieve hemostasis. Deep knife was used to proceed with sharp dissection. Next, Metzenbaum scissors were used to identify the nerve proximal to the cubital tunnel. This was then decompressed proximally. Next, the ulnar nerve was decompressed through the cubital tunnel by releasing the cubital tunnel. This decompression was continued distally providing a complete decompression of the nerve. Wound was irrigated and then closed in a layered fashion. The hand was then cleaned, dried, and dressed. Patient was taken to the PACU in stable condition. Complications: none Post-operative Condition: stable Disposition: PACU Plan for aftercare: Patient will follow our postoperative protocol for carpal tunnel and cubital tunnel release.
--- NOTE | 2018-12-27 12:05 | SUR.PHASEI ---
Encouraged patient to CDB. patient awake. Denies pain/nausea. states hand feels tingly.
--- NOTE | 2018-12-27 13:25 | SUR.PHASEII ---
8743 Dr. Jeffrey notified patient couging up clear fluid per [place]. evaluated patient. No new orders. 1300 VS stable. Cough resolved. Lungs clear. Patient ambulated to bathroom, SBA. Assisted to dress by her daughter.
== END 2018-12-27 13:05 | disposition home or self-care (01) ==
PROVIDERS: PCP Internal Medicine; Visit Provider Orthopaedic Surgery
PROC: (CPT 64721; principal; 2018-12-27 10:45)
PROC: (CPT 64718; 2018-12-27 10:45)
DX: G56.02 Carpal tunnel syndrome, left upper limb (principal); G56.22 Lesion of ulnar nerve, left upper limb
CPT/HCPCS: 64718; 64721; J2704; J3010

== ENCOUNTER 2019-02-04 17:54 | Observation (INO) | payer MEDICARE, OTHER, SELFPAY ==
--- NOTE | 2019-02-04 | DI.ECHO.S_ITS ---
[facility]---------+ [facility] +---------+ : : [address] : : : : [id number] : : : : Phone: [phone]+ Echocardiogram Report + + :Name: RADHA GILLESPIE Study Date: 02/05/2019 Height: 60 in : :[facility] Weight: 106 lb : : Gender: Female BSA: 1.4 m2 : :: 1935 Age: 83 yrs BP: 138/77 mmHg: :Reason For Study: TIA : : Performed By: Naveen Castorena : :Referring: LISA SCHMIDT : + + Interpretation Summary The left ventricle is normal in size, wall thickness, and systolic function without any focal wall motion abnormalities with the ejection fraction visually estimated to be 60-65%. Diastolic parameters suggest probable normal left ventricular diastolic function and normal filling pressures. The right ventricle is normal in size and function. Pulmonary artery pressures cannot be estimated because of the lack of a measurable TR jet velocity but the IVC suggests a CVP of around 3 mmHg. Both atria are normal in size. The aortic valve is mildly calcified with mild aortic regurgitation but there is no other significant valvular heart disease. Procedure: A two-dimensional transthoracic echocardiogram with color flow and Doppler was performed. The study quality was technically adequate. There is no prior echocardiogram noted for this patient. The patient was in normal sinus rhythm during the exam. Left Ventricle: The left ventricle is normal in size, wall thickness, and systolic function without any focal wall motion abnormalities. The ejection fraction is estimated to be 60-65%. Diastolic parameters suggest probable normal left ventricular diastolic function and normal filling pressures. Right Ventricle: The right ventricle is normal in size and function. Atria: Both atria are normal in size. The interatrial septum is intact with no evidence for an atrial septal defect. Mitral Valve: There is mild mitral annular calcification. The mitral valve leaflets appear mildly thickened, but open well. There is trace mitral regurgitation. Aortic Valve: The aortic valve is not well visualized. The aortic valve is mildly calcified. The aortic valve opens well. There is mild aortic regurgitation. Tricuspid Valve: The tricuspid valve leaflets are thin and pliable. There is trace tricuspid regurgitation. Pulmonary artery pressures cannot be estimated because of the lack of a measurable TR jet velocity but the IVC suggests a CVP of around 3 mmHg. Pulmonic Valve: The pulmonic valve is not well visualized. There is trace pulmonic regurgitation. There is no other significant valvular heart disease. Great Vessels: The aortic root is normal size. The ascending aorta could not be visualized. The pulmonary artery is normal size. The IVC is of normal diameter and collapses greater than 50% with a sniff. This suggests a low right atrial pressure of 3 mm Hg. Pericardium/ Pleura There is no pericardial effusion. There is no pleural effusion. MMode/2D Measurements & Calculations LVIDd: 4.0 cm LVOT diam: 1.9 cm LVIDs: 2.7 cm Ao root diam: 3.2 cm FS: 31.8 % Aortic Jxn: 3.1 cm EPSS: 0.64 cm IVSd: 1.1 cm LVPWd: 1.0 cm LV espino. diameter/BSA (cm/m^2): 2.8 LV sys. diameter/BSA (cm/m^2): 1.9 LA A2 area: 16.6 cm2 RA long axis: 4.1 cm LA A4 area: 13.3 cm2 RA area: 8.1 cm2 LA length (vol): 4.6 cm RA vol: 13.6 ml LA vol: 40.7 ml RA : 9.5 ml/m2 LA vol index: 28.6 ml/m2 TAPSE: 2.6 cm Doppler Measurements & Calculations Ao V2 max: 129.5 cm/sec LVOT Max Wally: 86.3 cm/sec Ao V2 mean: 82.3 cm/sec LV V1 max P.0 mmHg Ao max P.7 mmHg LV V1 VTI: 20.7 cm Ao mean P.2 mmHg CLAUDIA(I,D): 2.2 cm2 Ao V2 VTI: 27.4 cm CLAUDIA(V,D): 1.9 cm2 sev ratio: 0.76 CLAUDIA indexed to BSA (cm^2/m^2): 1.5 AI P1/2t: 480.6 msec AI dec slope: 245.5 cm/sec2 MV E max wally: 54.8 cm/sec SV(LVOT): 60.0 ml MV A max wally: 103.2 cm/sec MV E/A: 0.53 Med Peak E' Wally: 6.2 cm/sec E/E' med: 8.8 Lat Peak E' Wally: 7.5 cm/sec E/E' lat: 7.3 E/e' average: 8.1 MV dec time: 0.30 sec Reading Physician:SAMMI
[2019-02-04 18:01] VITALS: BP 172/76; PULSE 76; RESP 16; TEMP 36.3; O2SAT 94; BMI 20.7
--- NOTE | 2019-02-04 18:04 | DI.RAD.S_ITS ---
PROCEDURE: XR CHEST 1V INDICATIONS: Possible stroke TECHNIQUE: One view of the chest was acquired. COMPARISON: [facility], , CHEST 2 VIEW, 12/03/2010, 14:23. FINDINGS: Surgical changes and devices: None. Lungs and pleura: Lungs are clear. No pleural effusions or pneumothorax. Mediastinum: Mediastinal contours appear normal. Heart size is normal. Bones and chest wall: No suspicious bony lesions. Overlying soft tissues appear unremarkable. IMPRESSION: No acute disease. Dictated by: Perfecto Willoughby M.D. on 02/04/2019 at 19:54 Approved by: Perfecto Willoughby M.D. on 02/04/2019 at 19:54
--- NOTE | 2019-02-04 18:05 | DI.CT.S_ITS ---
PROCEDURE: CT HEAD/BRAIN WO CON INDICATIONS: speech difficulty TECHNIQUE: Noncontrast 4.5 mm thick angled axial sections acquired from the foramen magnum to the vertex, with coronal and sagittal reformats. For radiation dose reduction, the following was used: automated exposure control, adjustment of mA and/or kV according to patient size. COMPARISON: [facility], CT, CT HEAD/BRAIN WO CON, 12/13/2017, 16:07. FINDINGS: Image quality: Excellent. CSF spaces: Basal cisterns are patent. No extra-axial fluid collections. The ventricles are symmetric in size and shape. Brain: No intracranial bleeds or masses. There is cerebral volume loss for age, with resultant ventricular and sulcal prominence. There are periventricular and deep white matter chronic small vessel ischemic changes. There is intracranial internal carotid artery atherosclerosis. Skull and face: Calvarium and visualized facial bones appear intact, without suspicious lesions. Sinuses: Visualized sinuses and mastoids are clear. IMPRESSION: No acute intracranial process. Dictated by: Perfecto Willoughby M.D. on 02/04/2019 at 18:43 Approved by: Perfecto Willoughby M.D. on 02/04/2019 at 18:46
--- NOTE | 2019-02-04 18:19 | ED_ITS ---
HPI - Neuro Symptoms/Deficit General Chief Complaint: Neuro Symptoms/Deficit Stated Complaint: Garbled Speech Time Seen by Provider: 02/04/19 18:17 Source: patient Mode of arrival: Ambulatory Limitations: no limitations History of Present Illness HPI Narrative: 83-year-old female without a prior history of stroke or TIA here for evaluation of less than 10 minutes of slurring her words. This occurred several hours ago. She was on the phone with a family member when the symptoms occurred. Patient states she realized that she was slurring her words. She states she knew what she wanted to say but the words would not come out. She is unsure the exactly how long it lasted but she does know it was less than 10 minutes. Did not have any associated symptoms. Has not had any symptoms since then. Called her primary doctor who told her that she could come to the office to be evaluated. They stated that they sat in the office for several hours and was told that was going to be more hours before they could be seen. They then went to the other office of that Medical group and they were told to come to the emergency department for evaluation. On Anticoagulants: No (asparin) Related Data Home Medications Medication Instructions Recorded Confirmed B.ANI/L.ACI/L.PRAFUL/L.PLAN/L.KO 1 cap PO QDAY #0 12/03/10 02/04/19 (Probiotic Formula Capsule) Calcium Carbonate/Vitamin D 1 cap PO BID #0 12/03/10 02/04/19 (#CALCIUM) aspirin 81 mg PO QDAY #0 12/03/10 02/04/19 fexofenadine 180 mg PO QDAY #0 12/03/10 12/27/18 hydrochlorothiazide 25 mg PO QDAY #0 12/03/10 12/13/17 simvastatin 40 mg PO HS #0 12/03/10 02/04/19 epinephrine 1 dose IM PRN PRN 12/13/17 02/04/19 escitalopram oxalate 1 tab PO DAILY 12/13/17 02/04/19 fluticasone propionate 2 spray INTRANASAL DAILY 12/13/17 02/04/19 omeprazole 1 cap PO DAILY 12/13/17 12/13/17 amlodipine 5 mg PO DAILY 12/24/18 02/04/19 famotidine [Pepcid] 20 mg PO BID 12/24/18 02/04/19 acetaminophen [Acetaminophen Extra 500 mg PO Q4H PRN 12/27/18 02/04/19 Strength] Previous Rx's Medication Instructions Recorded hydrocodone-acetaminophen [[place]] 2 tab PO Q4-6H PRN #30 tab 12/27/18 Allergies Allergy/AdvReac Type Severity Reaction Status Date / Time gluten [GLUTEN] Allergy Severe diarrhea Verified 02/04/19 18:01 oxycodone AdvReac Severe Nausea, Verified 02/04/19 18:01 constipation vomiting Review of Systems Constitutional Constitutional: Denies fever(s) and Denies headache(s) Eyes Eyes: Denies blurry vision and Denies change in vision ENT Ears, Nose, Mouth, and Throat: Denies vertigo, Denies dizziness, Denies headache(s), Denies disequilibrium and Denies sore throat Comments: Slurring words Cardiovascular Cardiovascular: Denies chest pain, Denies syncope, Denies palpitations and Denies dyspnea Respiratory Respiratory: Denies cough and Denies dyspnea Gastrointestinal Gastrointestinal: Denies abdominal pain, Denies nausea and Denies vomiting Genitourinary Genitourinary: Denies dysuria Musculoskeletal Musculoskeletal: Denies myalgias and Denies arthralgias Integumentary/Breasts Skin/Breast: Denies lesions and Denies rash Neurologic Neurologic: Reports abnormal speech, Denies behavioral changes, Denies confusion, Denies vertigo, Denies dizziness, Denies syncope, Denies headache(s), Denies restless legs, Denies paresthesias and Denies disequilibrium Psychiatric Psychiatric: Denies behavioral changes and Denies confusion Endocrine Endocrine: Denies palpitations Hematologic/Lymphatic Hematologic/Lymphatic: Denies easy bleeding and Denies easy bruising Patient History Medical History GERD (gastroesophageal reflux disease) (Acute) HLD (hyperlipidemia) (Acute) HTN (hypertension) (Acute) Kidney disease (Acute) Osteopenia (Acute) SCC (squamous cell carcinoma) (Acute ~2017) Surgical History Hx of arthroscopy of knee (Acute) Hx of bilateral cataract extraction (Acute) Hx of tonsillectomy (Acute) S/P carpal tunnel release (Acute) Family History (Updated 02/04/19 @ 22:07 by ISABEL Jones) Sister Age: 96 Bone cancer Father Myocardial infarct Mother Old age Social History household members: caregiver and none Smoking Status: Former smoker alcohol intake: current Smoking Status: Former smoker alcohol intake frequency: 0-2 drinks per day Substance Use Type: does not use Exam Initial Vital Signs Initial Vital Signs: Vital Signs Temperature 97.4 F L 02/04/19 18:01 Pulse Rate 76 02/04/19 18:01 Respiratory Rate 16 02/04/19 18:01 Blood Pressure 172/76 H 02/04/19 18:01 Pulse Oximetry 94 02/04/19 18:01 Const General: cooperative, comfortable, well developed and well groomed Orientation: alert, awake and oriented x3 HENMT Head: normal to inspection and normocephalic Resp Effort & Inspection: normal respiratory effort Auscultation: clear to auscultation bilaterally Cardio Rate: regular rate Rhythm: regular rhythm GI Inspection: non-distended Palpation: soft and No firm Skin Lesions: no lesions Rashes: no rashes Neuro General: alert, awake and oriented x3 Cranial Nerves: CN's II-XI intact bilaterally Cognition: normal cognition Speech: speech normal Gait: normal gait Motor: muscle tone normal throughout Sensory Exam: no sensory deficits noted Extrem General: normal to inspection and capillary refill normal Psych Appearance: grossly normal and well kempt Scores ABCD2 Age >= 60 years: yes Initial BP. Either SBP >= 140 or DBP >= 90.: yes Clinical features of the TIA: speech disturbance without weakness Duration of symptoms: < 10 minutes History of diabetes: no ABCD2 Score: 3 GCS Adarsh coma scale eye opening: Spontaneous Adarsh coma scale verbal response: Orientated Adarsh coma scale motor response: Obey commands Adarsh coma scale total score: 15 Course Orders Ordered: ED Orders 02/04/19 18:04 XR chest 1V Stat EKG-12 Lead Stat 02/04/19 18:05 CT head/brain wo con Stat 02/04/19 18:23 Complete Blood Count AUTO DIFF Stat Comprehensive Metabolic Panel Stat Partial Thromboplastin Time Stat Prothrombin Time INR Stat Troponin & CK Cardiac Panel Stat 02/05/19 00:35 Urine Drug Screen, Rapid Stat Acetaminophen (Tylenol) 650 mg PO Q6HR PRN PRN Reason: Fever/Mild Pain (1-3) Atorvastatin Calcium (Lipitor) 40 mg PO BEDTIME [facility] Last Admin: 02/04/19 23:04 Dose: 40 mg Documented by: JUNIOR Heparin Sodium (Porcine) (Heparin) 5,000 unit SUBCUT BID [facility] Last Admin: 02/04/19 23:04 Dose: 5,000 unit Documented by: JUNIOR Sodium Chloride (Normal Saline 0.9% Flush) 10 ml IV PRN PRN PRN Reason: Flush Sodium Chloride (Normal Saline 0.9% Flush) 10 ml IV BID [facility] Discontinued Medications Amlodipine Besylate (Norvasc) 2.5 mg PO NOW ONE Stop: 02/04/19 21:55 Last Admin: 02/05/19 00:55 Dose: Not Given Documented by: NATALIE Amlodipine Besylate (Norvasc) 2.5 mg PO NOW ONE Stop: 02/05/19 00:31 Last Admin: 02/05/19 00:53 Dose: 2.5 mg Documented by: NATALIE Aspirin (Aspirin Ec) 325 mg PO NOW ONE Stop: 02/04/19 19:52 Last Admin: 02/05/19 00:55 Dose: Not Given Documented by: NATALIE Aspirin (Aspirin Ec) 325 mg PO NOW ONE Stop: 02/05/19 00:31 Last Admin: 02/05/19 00:53 Dose: 325 mg Documented by: NATALIE Vital Signs Vital signs: Vital Signs - 8 hr 02/04/19 18:01 Temperature 97.4 F L Pulse Rate 76 Respiratory Rate 16 Blood Pressure 172/76 H Pulse Oximetry 94 MDM - Neuro Symptoms/Deficit Lab Data Attestation: I reviewed the patient's lab results. Result diagrams: 02/04/19 18:23 02/04/19 18:23 Labs: Lab Results 02/04/19 02/04/19 02/04/19 Range/Units 18:23 18:23 18:23 WBC 7.1 (4.5-11.0) X10^3/uL RBC 3.94 L (4.0-5.2) X10^6/uL Hgb 11.2 L (12.0-16.0) g/dL Hct 33.8 L (36-46) % MCV 85.6 (80-100) fL MCH 28.4 (26-34) PG MCHC 33.2 (30-36) % RDW 13.9 (11.6-14.8) % Plt Count 320 (150-400) X10^3/uL Neut % (Auto) 61.0 (50-75) % Lymph % (Auto) 27.9 (25-40) % Divide % (Auto) 7.9 (3-14) % Eos % (Auto) 2.5 (2-4) % Baso % (Auto) 0.7 (0-2) % Neut # (Auto) 4300 (5502-9310) /uL Lymph # (Auto) 2000 (6084-6475) /uL [place] # (Auto) 600 (0-900) /uL Eos # (Auto) 200 (0-450) /uL Baso # (Auto) 0 (0-100) /uL PT 11.1 (10.1-12.7) SECONDS INR 1.0 (0.9-1.3) APTT 31 (26.4-36.2) SECONDS Sodium 139 (137-145) mmol/L Potassium 3.8 (3.4-5.1) mmol/L Chloride 100 (98-107) mmol/L Carbon Dioxide 28 (22-32) mmol/L BUN 25 H (7-17) mg/dL Creatinine 1.00 (0.52-1.04) mg/dL Estimated GFR 52.8 L (>60) mL/min BUN/Creatinine Ratio 25.0 H (6-22) Glucose 125 H (80-110) mg/dL Calcium 9.5 (8.4-10.2) mg/dL Magnesium (1.6-2.3) mg/dL Total Bilirubin 0.3 (0.2-1.3) mg/dL AST 30 (14-36) IU/L ALT 12 (<35) IU/L Alkaline Phosphatase 74 (38-126) U/L Total Creatine Kinase 59 (30-135) U/L CK-MB (CK-2) TNP CK-MB (CK-2) Rel Index TNP Troponin I < 0.012 (0.01-0.034) ng/mL Total Protein 7.5 (6.3-8.2) g/dL Albumin 4.4 (3.5-5.0) g/dL Globulin 3.1 (1.7-4.1) g/dL Albumin/Globulin Ratio 1.4 (1.0-2.8) 02/04/19 Range/Units 18:23 WBC (4.5-11.0) X10^3/uL RBC (4.0-5.2) X10^6/uL Hgb (12.0-16.0) g/dL Hct (36-46) % MCV (80-100) fL MCH (26-34) PG MCHC (30-36) % RDW (11.6-14.8) % Plt Count (150-400) X10^3/uL Neut % (Auto) (50-75) % Lymph % (Auto) (25-40) % [place] % (Auto) (3-14) % Eos % (Auto) (2-4) % Baso % (Auto) (0-2) % Neut # (Auto) (4926-3177) /uL Lymph # (Auto) (1965-4760) /uL [place] # (Auto) (0-900) /uL Eos # (Auto) (0-450) /uL Baso # (Auto) (0-100) /uL PT (10.1-12.7) SECONDS INR (0.9-1.3) APTT (26.4-36.2) SECONDS Sodium (137-145) mmol/L Potassium (3.4-5.1) mmol/L Chloride (98-107) mmol/L Carbon Dioxide (22-32) mmol/L BUN (7-17) mg/dL Creatinine (0.52-1.04) mg/dL Estimated GFR (>60) mL/min BUN/Creatinine Ratio (6-22) Glucose (80-110) mg/dL Calcium (8.4-10.2) mg/dL Magnesium 2.2 (1.6-2.3) mg/dL Total Bilirubin (0.2-1.3) mg/dL AST (14-36) IU/L ALT (<35) IU/L Alkaline Phosphatase (38-126) U/L Total Creatine Kinase (30-135) U/L CK-MB (CK-2) CK-MB (CK-2) Rel Index Troponin I (0.01-0.034) ng/mL Total Protein (6.3-8.2) g/dL Albumin (3.5-5.0) g/dL Globulin (1.7-4.1) g/dL Albumin/Globulin Ratio (1.0-2.8) Imaging Data Chest x-ray: Radiologist's impression: [address] [address] XRay Report Signed Patient: Lupe Jean LMR#: [id number] : 5Acct:[id number] Age/Sex: 83 / FDate of Service: 02/04/19 Loc: ED Accession Number: [id number] Procedure: XR chest 1V Ordering Provider: Randall Villa D.O. PROCEDURE: XR CHEST 1V INDICATIONS: Possible stroke TECHNIQUE: One view of the chest was acquired. COMPARISON: [facility], CR, CHEST 2 VIEW, 12/03/2010, 14:23. FINDINGS: Surgical changes and devices: None. Lungs and pleura: Lungs are clear. No pleural effusions or pneumothorax. Mediastinum: Mediastinal contours appear normal. Heart size is normal. Bones and chest wall: No suspicious bony lesions. Overlying soft tissues appear unremarkable. IMPRESSION: No acute disease. Dictated by: Perfecto Willoughby M.D. on 02/04/2019 at 19:54 Approved by: Perfecto Willoughby M.D. on 02/04/2019 at 19:54 CT scan - head: Radiologist's impression: [address] [address] [address] Scan Report Signed Patient: Lupe Jean LMR#: [id number] : 5Acct:[id number] Age/Sex: 83 / FDate of Service: 02/04/19 Loc: ED Accession Number: [id number] Procedure: CT head/brain wo con Ordering Provider: Randall Villa D.O. PROCEDURE: CT HEAD/BRAIN WO CON INDICATIONS: speech difficulty TECHNIQUE: Noncontrast 4.5 mm thick angled axial sections acquired from the foramen magnum to the vertex, with coronal and sagittal reformats. For radiation dose reduction, the following was used: automated exposure control, adjustment of mA and/or kV according to patient size. COMPARISON: [facility], CT, CT HEAD/BRAIN WO CON, 12/13/2017, 16:07. FINDINGS: Image quality: Excellent. CSF spaces: Basal cisterns are patent. No extra-axial fluid collections. The ventricles are symmetric in size and shape. Brain: No intracranial bleeds or masses. There is cerebral volume loss for age, with resultant ventricular and sulcal prominence. There are periventricular and deep white matter chronic small vessel ischemic changes. There is intracranial internal carotid artery atherosclerosis. Skull and face: Calvarium and visualized facial bones appear intact, without tucker spicious lesions. Sinuses: Visualized sinuses and mastoids are clear. IMPRESSION: No acute intracranial process. Dictated by: Perfecto Willoughby M.D. on 02/04/2019 at 18:43 Approved by: Perfecto Willoughby M.D. on 02/04/2019 at 18:46 ECG Data Attestation: I personally reviewed and interpreted this ECG as follows: Prior ECG tracings: not available for review Interpretation: Sinus rhythm Normal axis Normal QRS Normal QTC No ST T wave changes MDM Narrative Medical decision making narrative: Patient was asymptomatic the time of my evaluation. Had a normal neurologic exam of the time my evaluation. Has never had a TIA or CVA in the past. Her symptoms today are consistent with a TIA. Discussed admitting to the hospital for further evaluation of the symptoms. Patient expressed understanding and agreement plan. Discussed the case with FOSTER Willoughby night provider who will admit for further evaluation. Discharge Plan Departure Patient Disposition: Admitted as Observation Clinical Impression: Transient cerebral ischemia Qualifiers: Transient cerebral ischemia type: unspecified Qualified Code(s): G45.9 - Transient cerebral ischemic attack, unspecified Discharge Date/Time: 02/04/19 21:27 Admit Date/Time: 02/04/19 20:07 Admit Provider: Macie Willoughby
[2019-02-04 18:33] LABS: Add Manual Diff / Slide Review NO; Basophils Absolute Auto 0 /uL (0-100); Basophils Percent Auto 0.7 % (0-2); Eosinophils Absolute Auto 200 /uL (0-450); Eosinophils Percent Auto 2.5 % (2-4); Hematocrit 33.8 % (36-46); Hemoglobin 11.2 g/dL (12.0-16.0); Lymphocytes Absolute Auto 2000 /uL (1100-4500); Lymphocytes Percent Auto 27.9 % (25-40); Mean Corpuscular HGB Conc 33.2 % (30-36); Mean Corpuscular Hemoglobin 28.4 PG (26-34); Mean Corpuscular Volume 85.6 fL (80-100); Monocytes Absolute Auto 600 /uL (0-900); Monocytes Percent Auto 7.9 % (3-14); Neutrophils Absolute Auto 4300 /uL (1500-7000); Platelet Count 320 X10^3/uL (150-400); Red Blood Cell Count 3.94 X10^6/uL (4.0-5.2); Red Cell Distribution Width 13.9 % (11.6-14.8); White Blood Cell Count 7.1 X10^3/uL (4.5-11.0)
[2019-02-04 18:39] LABS: Prothrombin Time 11.1 SECONDS (10.1-12.7)
[2019-02-04 18:41] LABS: PTT Partial Thromboplastin Tim 31 SECONDS (26.4-36.2)
[2019-02-04 18:43] LABS: Alanine Aminotransferase 12 IU/L (<35); Albumin 4.4 g/dL (3.5-5.0); Albumin Globulin Ratio 1.4 (1.0-2.8); Alkaline Phosphatase 74 U/L (38-126); Aspartate Aminotransferase 30 IU/L (14-36); Bilirubin Total 0.3 mg/dL (0.2-1.3); Blood Urea Nitrogen 25 mg/dL (7-17); Calcium 9.5 mg/dL (8.4-10.2); Carbon Dioxide 28 mmol/L (22-32); Chloride 100 mmol/L (98-107); Creatine Kinase 59 U/L (30-135); Estimated Glomerular Filt Rate 52.8 mL/min (>60); Globulin 3.1 g/dL (1.7-4.1); Glucose 125 mg/dL (80-110); HEMOLYSIS 19 (0-50); Potassium 3.8 mmol/L (3.4-5.1); Sodium 139 mmol/L (137-145); Total Protein 7.5 g/dL (6.3-8.2)
[2019-02-04 18:55] LABS: Troponin I < 0.012 ng/mL (0.01-0.034)
[2019-02-04 21:00] VITALS: BP 160/78; PULSE 78; RESP 14; O2SAT 96
[2019-02-04 21:04] LABS: Magnesium 2.2 mg/dL (1.6-2.3)
[2019-02-04 21:35] VITALS: BP 182/95; PULSE 71; RESP 20; TEMP 36.1; O2SAT 96; BMI 19.8
--- NOTE | 2019-02-04 21:39 | P.HP_ITS ---
History of Present Illness History of Present Illness Date Patient Seen: 02/04/19 Time Patient Seen: 20:00 Chief complaint: Suspected TIA Narrative: Lupe Jean is a pleasant 83 y.o. female with a history of hypertension, hyperlipidemia and a recent carpal release of her left wrist presented today with a symptom of a 2 minute transient word-finding problem. She was on the phone with her daughter and knew what she wanted to say but was unable to express herself. Her daughter became alarmed, came over to her home and took her to her PCP's office in [facility]. They waited for 2 hours, were then told it would be a few more hours. They left and presented to a sister office in [place] where they were directed to go the ED. Patient stated the word finding issue resolved, she denies any facial numbness, vision change, she is hard of hearing and wears hearing aids. She denied chest pain, shortness of breath, nausea or vomiting, dysuria, diarrhea or constipation, numbing or tingling of her upper and lower extremities. She is independent and lives in an apartment of her own at [facility]. Patient History Medical History GERD (gastroesophageal reflux disease) (Acute) HLD (hyperlipidemia) (Acute) HTN (hypertension) (Acute) Kidney disease (Acute) Osteopenia (Acute) SCC (squamous cell carcinoma) (Acute ~2017) Surgical History Hx of arthroscopy of knee (Acute) Hx of bilateral cataract extraction (Acute) Hx of tonsillectomy (Acute) S/P carpal tunnel release (Acute) Family & Social History Family History (Updated 02/04/19 @ 22:07 by ISABEL Jones) Sister Age: 96 Bone cancer Father Myocardial infarct Mother Old age Social History: household members caregiver Safety & Behavioral: Feels Safe in Current Yes Environment Been Physically Hurt or No Threatened By a Person Tobacco & Substance use: Smoking Status Former smoker, quit 15 years ago alcohol intake current, holidays alcohol intake frequency 0-2 drinks per day Substance Use Type does not use Meds Home Medications and Allergies Home Medications Medication Instructions Recorded Confirmed Type B.ANI/L.ACI/L.PRAFUL/L.PLAN/L.KO 1 cap PO QDAY #0 12/03/10 12/27/18 History (Probiotic Formula Capsule) Calcium Carbonate/Vitamin D 1 cap PO BID #0 12/03/10 12/27/18 History (#CALCIUM) aspirin 81 mg PO QDAY #0 12/03/10 12/27/18 History fexofenadine 180 mg PO QDAY #0 12/03/10 12/27/18 History hydrochlorothiazide 25 mg PO QDAY #0 12/03/10 12/13/17 History simvastatin 40 mg PO HS #0 12/03/10 12/27/18 History epinephrine 1 dose IM PRN PRN 12/13/17 12/24/18 History escitalopram oxalate 1 tab PO DAILY 12/13/17 12/27/18 History fluticasone propionate 2 spray INTRANASAL DAILY 12/13/17 12/27/18 History omeprazole 1 cap PO DAILY 12/13/17 12/13/17 History amlodipine 5 mg PO DAILY 12/24/18 12/27/18 History famotidine [Pepcid] 20 mg PO BID 12/24/18 12/27/18 History acetaminophen 500 mg PO Q4H PRN 12/27/18 12/27/18 History hydrocodone-acetaminophen [[place]] 2 tab PO Q4-6H PRN #30 tab 12/27/18 Rx Allergies Allergy/AdvReac Type Severity Reaction Status Date / Time gluten [GLUTEN] Allergy Severe diarrhea Verified 02/04/19 18:01 oxycodone AdvReac Severe Nausea, Verified 02/04/19 18:01 constipation vomiting Review of Systems Review of Systems Narrative: All systems reviewed and are negative except as noted in the HPI and below. Exam Vital Signs (past 8 hours): - 02/04/19 18:01 02/04/19 21:00 Temperature 97.4 F L Pulse Rate 76 78 Respiratory Rate 16 14 Blood Pressure 172/76 H Blood Pressure [Right Arm] 160/78 H Pulse Oximetry 94 96 Oxygen Delivery Method Room Air Narrative Exam Narrative: Gen: Alert, oriented, well-developed 83 y.o. female HEENT: normocephalic, atraumatic, conjunctiva clear, sclera non-icteric, oral mucosa pink and moist Neck: supple, full ROM Resp: Lungs CTA, non-labored breathing CV: RRR, no murmur or rubs Abd: soft, non-tender, normoactive BTs Skin: no lesions or rashes, dry and intact Neuro: Alert and oriented X 4 w/no focal deficits, no facial assymetry, she is hard of hearing and wears hearing aids Extremities: moves all 4 extremities, is ambulatory, negative Natalie?s sign Psyche: normal mood and affect. Objective Labs Result Diagrams: 02/04/19 18:23 02/04/19 18:23 Labs: Laboratory Results - last 24 hr 02/04/19 02/04/19 02/04/19 18:23 18:23 18:23 WBC 7.1 RBC 3.94 L Hgb 11.2 L Hct 33.8 L MCV 85.6 MCH 28.4 MCHC 33.2 RDW 13.9 Plt Count 320 Neut % (Auto) 61.0 Lymph % (Auto) 27.9 [place] % (Auto) 7.9 Eos % (Auto) 2.5 Baso % (Auto) 0.7 Neut # (Auto) 4300 Lymph # (Auto) 2000 [place] # (Auto) 600 Eos # (Auto) 200 Baso # (Auto) 0 PT 11.1 INR 1.0 APTT 31 Sodium 139 Potassium 3.8 Chloride 100 Carbon Dioxide 28 BUN 25 H Creatinine 1.00 Estimated GFR 52.8 L BUN/Creatinine Ratio 25.0 H Glucose 125 H Calcium 9.5 Magnesium Total Bilirubin 0.3 AST 30 ALT 12 Alkaline Phosphatase 74 Total Creatine Kinase 59 CK-MB (CK-2) TNP CK-MB (CK-2) Rel Index TNP Troponin I < 0.012 Total Protein 7.5 Albumin 4.4 Globulin 3.1 Albumin/Globulin Ratio 1.4 02/04/19 18:23 WBC RBC Hgb Hct MCV MCH MCHC RDW Plt Count Neut % (Auto) Lymph % (Auto) [place] % (Auto) Eos % (Auto) Baso % (Auto) Neut # (Auto) Lymph # (Auto) [place] # (Auto) Eos # (Auto) Baso # (Auto) PT INR APTT Sodium Potassium Chloride Carbon Dioxide BUN Creatinine Estimated GFR BUN/Creatinine Ratio Glucose Calcium Magnesium 2.2 Total Bilirubin AST ALT Alkaline Phosphatase Total Creatine Kinase CK-MB (CK-2) CK-MB (CK-2) Rel Index Troponin I Total Protein Albumin Globulin Albumin/Globulin Ratio Assessment & Plan Assessment & Plan narrative: Lupe Jean will be placed in observation to undergo further definative testing in the am for a suspected TIA. 1. Suspected TIA, new and acute, but not present on admission * MRI/MRI Stroke in the am, NPO after midnight * Echocardiogram in the am 2. Hypertension, poor control and present on admission * Patient was taking amlodipine 5 mg, though she states it was changed * She will receive a one time oral dose of 2.5 mg now * Med record indicates she takes hydrochlorothiaze which will be held 3. Hyperlipidemia, chronic * She is noted to have taken simvastatin 40 mg * She is administered atorvastatin 40 mg po at bedtime starting tonight 4. CAD, chronic * Continue ASA 81 mg po daily 5. Depression, chronic * Continue home dose of lexapro when dose is confirmed in the am. 6. Chronic kidney disease Stage 1, chronic * Her creatinine is 1.0 with a GFR of 58 * Continue monitoring and avoid nephrotoxic medications Patient is placed into observation as her stay is not anticipated to exceed 2 midnights. FEN: IV saline lock, low sodium gluten free diet, chemistries in the am. VTE Prophylaxis: heparin 5000 units subQ bid Disposition: unknown at this time Code status: DNR Meds reconciled: No, medications to be confirmed with her PCP's office in the a m. Time Spent With Patient Time with patient: 15-24 minutes
[2019-02-04] MEDS: ATORVASTATIN 20 MG TABLET 40 MG PO (23:04)
[2019-02-04] MEDS: HEPARIN 5,000 UNIT/ML VIAL 5000 UNIT SUBCUT (23:04)
--- NOTE | 2019-02-04 23:39 | PC.NURSE ---
Admit note: Lupe brought to acute care via wheelchair, ambulatory in room, asking to put on her coat. Warm blankets given, pajama pants offered. VS stable although she is hypertensive. Talking very quickly, appearing excited about events. Denies headache pain, reports dull left wrist pain from recent carpal tunnel surgery. Denies any nausea or swallowing problems. Told me she walked my normal mile before I came here. Oriented to room, call button, fall precautions in place. Gait is steady & she denies any recent falls. Reports she is very active. She got up to BR without calling nurse, bed alarming & she was yelling what did I do? Explained our fall precautions, she said well that's not going to happen. Patient report given to Jackelyn RIDDLE RN.
[2019-02-04 23:40] VITALS: BP 170/84; PULSE 69; RESP 18; TEMP 36.4; O2SAT 95
--- NOTE | 2019-02-05 00:49 | PC.NURSE ---
Patient is alert and oriented. Breath sounds CTA with RA sat of 95%. HRR; telemetry reading was SR w/1st degree AVB + BBB. Denies nausea. BT present and abdomen is soft. Denies dysuria, frequency or urgency with urination; urine is clear, pale yellow. Able to move self in bed and up to bathroom with SBA for safety. Has 1/10 pain in palm of left hand from carpal tunnel release but declines offer of pain med. Healed incision on left elbow with redness surrounding. NIH score is 0 at this time. NPO for MRI/MRA in the morning. SCD's applied at shift changed. Fall risk score is moderate; bed alarm is activated.
[2019-02-05] MEDS: AMLODIPINE 2.5 MG TABLET PO (00:53)
[2019-02-05] MEDS: ASPIRIN EC 325 MG TABLET PO (00:53)
[2019-02-05 00:57] LABS: Ur Creatinine 20 (Normal); Ur Specific Gravity 1.015 (Normal); Urine pH 7 (Normal)
[2019-02-05 00:58] LABS: UR Morphine/Opiate cutoff 300 Negative (Negative); Urine Amphetamines Negative (Negative); Urine Barbiturates Negative (Negative); Urine Benzodiazepines Negative (Negative); Urine Cocaine Negative (Negative); Urine MDMA Negative (Negative); Urine Methadone Negative (Negative); Urine Methamphetamines Negative (Negative); Urine Oxycodone Negative (Negative); Urine Phencyclidine Negative (Negative); Urine Tetrahydrocannabinol Negative (Negative); Urine Tricyclic Antidepressant Negative (Negative)
[2019-02-05 05:15] VITALS: BP 154/71; PULSE 69; RESP 18; TEMP 36.4; O2SAT 93
[2019-02-05 05:54] LABS: Add Manual Diff / Slide Review NO; Basophils Absolute Auto 100 /uL (0-100); Basophils Percent Auto 0.7 % (0-2); Eosinophils Absolute Auto 200 /uL (0-450); Eosinophils Percent Auto 2.4 % (2-4); Hematocrit 32.6 % (36-46); Lymphocytes Absolute Auto 1800 /uL (1100-4500); Lymphocytes Percent Auto 23.6 % (25-40); Mean Corpuscular HGB Conc 33.6 % (30-36); Mean Corpuscular Hemoglobin 28.5 PG (26-34); Mean Corpuscular Volume 84.7 fL (80-100); Monocytes Absolute Auto 700 /uL (0-900); Monocytes Percent Auto 9.1 % (3-14); Neutrophils Absolute Auto 4900 /uL (1500-7000); Neutrophils Percent Auto 64.2 % (50-75); Platelet Count 297 X10^3/uL (150-400); Red Blood Cell Count 3.85 X10^6/uL (4.0-5.2); Red Cell Distribution Width 13.7 % (11.6-14.8); White Blood Cell Count 7.7 X10^3/uL (4.5-11.0)
--- NOTE | 2019-02-05 06:00 | DI.MRI.S_ITS ---
PROCEDURE: MR STROKE Pre- and post-contrast brain MRI, non-contrast brain MR angiogram, pre- and postcontrast neck MR angiogram INDICATIONS: TIA. TECHNIQUE: Brain: Noncontrast axial T1 spin echo, axial T2 fast spin echo, sagittal and axial FLAIR, coronal T2 fast spin echo, axial gradient echo, axial diffusion and ADC through the brain. After the administration of contrast, axial 3D VIBE of the cranial vasculature and brain. Brain MRA: Non-contrast 3-D time of flight MR angiogram, with multiple iwhgcpc-meztqzrii-zmwgeljsvw (MIP) reformats performed. Neck MRA: Axial and sagittal TruFISP through the neck. Coronal dynamic MR angiogram during administration of contrast in the arterial and venous phases, with 3-dimenstional kemughn-ktdogvpjj-ufdaexslph (MIP) reformats constructed from subtraction images. COMPARISON: [facility], CT, CT HEAD/BRAIN WO CON, 12/13/2017, 16:07. [facility], CT, CT HEAD/BRAIN WO CON, 02/04/2019, 18:09. FINDINGS: Image quality: Excellent. BRAIN: CSF spaces: Ventricles are normal in size and shape. Basal cisterns are patent. No extra-axial fluid collections. Brain: No intracranial bleeds or mass effects. There is mild age-appropriate cerebral volume loss. Moderate chronic small vessel ischemic changes are present in periventricular and subcortical white matter, as well as jojo. Diffusion weighted images show no acute ischemic insults. Brainstem appears normal. Normal intravascular flow voids are present. No abnormal intracranial enhancement. Skull and face: Calvarial marrow signal is normal. Orbits appear normal. Sinuses: Sinuses and mastoids are clear. BRAIN MR ANGIOGRAM: Anterior circulation: Intracranial internal carotid arteries are normal in size and enhancement. The flow within the paired anterior cerebral arteries is normal and symmetric. The flow within the middle cerebral arteries is normal and symmetric. The anterior communicating artery is seen. No stenoses, occlusions, or aneurysms. Posterior circulation: The visualized portions of the vertebral arteries demonstrate normal caliber, and join to form a normal appearing basilar artery. The flow within the posterior cerebral arteries is normal and symmetric. No stenoses, occlusions, or aneurysms. NECK MR ANGIOGRAM: Carotids: Great vessels demonstrate a conventional anatomy as they arise from the aortic arch. The origins of the common carotid arteries appear patent. The calibers and courses of both common carotid arteries are normal. The bifurcation regions appear normal bilaterally. The internal carotid arteries demonstrate normal course and caliber. Posterior circulation: The origins of the vertebral arteries appear patent. More superior portions of both vertebral arteries demonstrate normal course and caliber, and join to form a normal appearing basilar artery. Miscellaneous: Subclavian arteries appear patent. Pre-contrast images through the neck show no soft tissue abnormalities. IMPRESSION: BRAIN MRI: 1. No acute intracranial abnormalities. 2. Mild cerebral volume loss and moderate chronic microvascular ischemic changes. BRAIN MR ANGIOGRAM: 1. No high-grade stenosis or occlusion in anterior circulations. 2. No high-grade stenosis or occlusion in posterior circulations. NECK MR ANGIOGRAM: 1. No high-grade stenosis or occlusion in cervical carotid arteries bilaterally. 2. No high-grade stenosis or occlusion in cervical vertebral arteries bilaterally. Dictated by: Alice Vera M.D. on 02/05/2019 at 12:14 Approved by: Alice Vera M.D. on 02/05/2019 at 12:24
[2019-02-05 06:09] LABS: BUN Creatinine Ratio 20.9 (6-22); Blood Urea Nitrogen 23 mg/dL (7-17); Calcium 9.3 mg/dL (8.4-10.2); Carbon Dioxide 30 mmol/L (22-32); Chloride 101 mmol/L (98-107); Estimated Glomerular Filt Rate 47.3 mL/min (>60); Glucose 87 mg/dL (80-110); HEMOLYSIS < 15 (0-50); Sodium 138 mmol/L (137-145)
[2019-02-05 06:10] LABS: Cholesterol 132 mg/dL (140-199); HDL Cholesterol 43 mg/dL (40-60); LDL Cholesterol Calculated 64 mg/dL (<100); Triglycerides 127 mg/dL (35-150)
[2019-02-05 06:15] LABS: B Type Natriuretic Peptide < 100 (<100)
[2019-02-05 08:20] VITALS: BP 138/77; PULSE 66; RESP 16; TEMP 36.3; O2SAT 96
--- NOTE | 2019-02-05 11:09 | PC.NURSE ---
Addendum entered by Paulina Ernst R.N. 02/05/19 15:37: Discharge: IV dc'd intact and with good hemostasis. Tele dc'd. Reviewed all discharge paperwork thoroughly with patient and daughter. No new meds, no changes to home meds. Reviewed s/sx stroke/TIA thoroughly and made sure to emphasize that she/they call 911 with any new onset symptoms. All personal belongings sent with patient at discharge. Wheeled out to private vehicle by this sheet writer. Pharmacy sent up a little bag of mixed pills after patient was already gone. This sheet writer called patient to ask if she wants to come pick them up- she wanted them thrown away, so that is what was done with it. Original Note: Shift summary: ECHO completed. Patient off floor for MRI at this time.
[2019-02-05 11:45] VITALS: BP 141/68; PULSE 72; RESP 16; TEMP 36.9; O2SAT 94
[2019-02-05] MEDS: SODIUM CHLORIDE 0.9% FLUSH 10 ML IV (12:13)
--- NOTE | 2019-02-05 12:23 | ST.IPIE ---
Visit Care Team Role Provider Type Gisell Farah MD Primary Care Provider Non-Staff Specialty: Internal Medicine Address: [address] [place] [address], [id number] Email: [email or web address] Randall Villa DO Emergency Provider Physician Specialty: Emergency Medicine Address: [address] [place] [address], [address] Email: [email or web address] ISABEL Jones Admit Provider Physician Attending Provider Specialty: Internal Medicine Address: [address] [place] [address], [id number] Email: [email or web address] Past Medical History (Last Reviewed 02/05/19 @ 02:00 by Randall Villa DO) GERD (gastroesophageal reflux disease) (Acute Medical) HLD (hyperlipidemia) (Acute Medical) HTN (hypertension) (Acute Medical) Kidney disease (Acute Medical) Osteopenia (Acute Medical) SCC (squamous cell carcinoma) (Acute Medical ~2017) LLE, c/w non-healing excision site ST IP Initial Evaulation Report MARKETING FINANCIAL ANALYST Language Evaluation Start: 02/05/19 12:04 Freq: Status: Active Protocol: Document 02/05/19 12:04 YOLANDA (Rec: 02/05/19 12:23 YOLANDA [email or web address]) Language Evaluation Session Time Visit Start Time 08:40 Visit Stop Time 09:05 Total Visit Minutes 25 Visit Information Visit Number Initial Evaluation Referral Referring Physician Dr. Macie Willoughby Reason for Referral TIA Language Evaluation Assessment Type Informal Expressive/Receptive, Oral Peripheral Exam Past Medical History Patient History Pt is an 83-yr-old female who experienced difficulty expressing herself while talking on the phone. Pt was brought to [facility] ED by family and then admitted to acute floor for observation and further assessment for stroke. Per pt report, symptoms were limited to expressive language and resolved after only a few minutes. Hearing Hearing Level Hearing Aids Vision Vision Status Impaired Comments Pt wears prescription bifocal glasses Telida Language Language(s) Spoken in the Home Vietnamese Previous Therapy Previous Speech-Language Therapy No Oral Motor Examination Oral Motor Exam Completed Yes Results All structures were symmetrical and WNL of strength, coordination and ROM . Pt has natural dentition in adequate condition for age. Subjective Subjective The pt was awake and lying in bed reading a novel. She reported no current symptoms, no difficulty tracking and understanding conversation with others, and no difficulty expressing herself. She denied any other cognitive changes. She reported not having had any food or liquid while at the hospital. Denied hx of swallow difficulties. - Informal Assessment Receptive Language Normal Yes Expressive Language Normal Yes Articulation Normal Yes Cognition Normal Not tested, but no obvious s/ sx Assessment Findings The pt presents with expressive and receptive language and speech intelligibility WNL. No evidence of aphasia, apraxia of speech, or dysarthria. The pt scored 100% accuracy in simple and complex yes/no questions, confrontational and responsive naming tasks, object identification, right/ left body discrimination, 1- and 2-step commands, automatic speech, imitation, phrase completion, reading words/ phrases/sentences, and picture description. She made 1 error in completing 3-step directions, 1 spelling error when writing a novel sentence, and mildly reduced legibility in writing. She was oriented x4. She participated appropriately in conversation, maintaining topics and taking turns appropriately. Expressive language was appropriate in content and syntax, and speech was clear and absent of s/sx of dysarthria. Recommendations The pt's swallow function/ safety was not evaluated. Recommend following Nursing swallow screen. If pt fails, swallow evaluation will be performed by MARKETING FINANCIAL ANALYST. Otherwise, plan to discharge from skilled Speech Therapy services. Nursing was notified of these recommendations and in agreement. - Receptive Language - Expressive Language -
--- NOTE | 2019-02-05 12:29 | CM.DANOTE ---
Discharge Planning/Care Management DCP: assessment: case received, EMR reviewed and discussed in Team Rounds. Dr. Robles stated he anticipated pt would be going home today after testing as she has returned to her baseline. He confirmed no therpy involvement would be needed. Met now with pt. Introduced self and role. Pt is an 83 year old female who admitted last night to care of hospitalist team. PCP: Gisell Farah Payer: Medicare and [facility] Admission status: in review: per UR RN Ortiz. Pt confirms she has had her MRI and is hoping that she will be able to d/c today. She lives at [facility] in [place]. Has been since June. I took care of june at the [facility] but finally had to place him at [facility]. I sold my house so I will stay on at [facility]. Pt reports she is very active at baseline and an active member of [employer] in [place]. She is waiting now to be cleared for d/c by Dr. Robles and says her daughter will be picking her up. P: home today as noted. Will alert [facility] to pt's current status of so they can update pt's records. CM Discharge Assessment Start: 02/05/19 12:26 Freq: Status: Active Protocol: Document 02/05/19 12:27 ITV (Rec: 02/05/19 12:29 ITV [id number]) Discharge Planning Assessment Advance Directives? Yes Advance Directives on File No History Provided By Patient,Medical Record Has Patient been admitted in last 30 No days? Prior Living Arrangements [facility] Facility Facility Name Admitted From: [facility] [address] Willing to Return to Facility? Yes Independent with ADL's Yes Is patient alert and oriented? Yes Caregiver for Another No Discharge Plan Home Transportation Arrangement pt's daughter Rabia [place]: [place]: will pick her up at d/c. Whiteboard Updated in Patient Room with Yes name and ext. # of Street Superintendent Review Status In Process
--- NOTE | 2019-02-06 12:26 | P.DS_ITS ---
History of Present Illness History of Present Illness Date Patient Seen: 02/05/19 Time Patient Seen: 13:00 Chief complaint: Suspected TIA Narrative: As per ISABEL Jones: Lupe Jean is a pleasant 83 y.o. female with a history of hypertension, hyperlipidemia and a recent carpal release of her left wrist presented today with a symptom of a 2 minute transient word-finding problem. She was on the phone with her daughter and knew what she wanted to say but was unable to express herself. Her daughter became alarmed, came over to her home and took her to her PCP's office in [facility]. They waited for 2 hours, were then told it would be a few more hours. They left and presented to a sister office in [place] where they were directed to go the ED. Patient stated the word finding issue resolved, she denies any facial numbness, vision change, she is hard of hearing and wears hearing aids. She denied chest pain, shortness of breath, nausea or vomiting, dysuria, diarrhea or constipation, numbing or tingling of her upper and lower extremities. She is independent and lives in an apartment of her own at [facility]. Discharge Providers Provider Date of admission: 02/04/19 20:07 Discharge Date: 02/05/19 Primary care physician: Gisell Farah MD Consults: 02/04/19 20:45 Consult to Speech Therapy Evaluate & Treat Comment: TIA, now resolved Physician Instructions: Evaluate and treat Discharge provider: Hayes Robles DO Summary Hospital Course Discharge Diagnosis: 1. TIA, new and acute, but not present on admission 2. Hypertension, poor control and present on admission 3. Hyperlipidemia, chronic 4. CAD, chronic 5. Depression, chronic 6. Chronic kidney disease Stage 1, chronic Hospital Course: Lupe Jean is an 83-year-old female with a past medical history of hypertension, CAD, depression, CKD, and hyperlipidemia who presented with a few minutes of aphasia that resolved. Patient was admitted under observation status, her MRI was negative for any acute infarcts. She had no recurrence of her symptoms, or other stroke symptoms while admitted. She had no events on telemetry. She was discharged home, patient was already taking aspirin and a statin which she should continue 1. TIA, new and acute, but not present on admission MRI stroke negative 2. Hypertension, poor control and present on admission Patient's blood pressure control improved when she arrived to the floor, she can resume her home medications, no medications changes were made. 3. Hyperlipidemia, chronic Continue home simvastatin 40 mg 4. CAD, chronic Continue ASA 81 mg po daily 5. Depression, chronic Continue home Lexapro 6. Chronic kidney disease Stage 1, chronic Exam Vital Signs (past 8 hours): Oxygen Delivery Method Room Air Oxygen Flow Rate 0 Narrative Exam Narrative: Gen: Alert, oriented, well-developed 83 y.o. female HEENT: normocephalic, atraumatic, conjunctiva clear, sclera non-icteric, oral mucosa pink and moist Neck: supple, full ROM Resp: Lungs CTA, non-labored breathing CV: RRR, no murmur or rubs Abd: soft, non-tender, normoactive BTs Skin: no lesions or rashes, dry and intact Neuro: Alert and oriented X 4 w/no focal deficits, no facial assymetry, she is hard of hearing and wears hearing aids, no deficits in sensation. Extremities: moves all 4 extremities, is ambulatory, negative Natalie?s sign Psyche: normal mood and affect. Objective Labs Result Diagrams: 02/05/19 05:15 02/05/19 05:15 Discharge Plan Discharge Plan Patient Disposition: Home Discharge comment: You were admitted to the hospital with a likely TIA. Your symptoms were not severe enough that you should start another medication. You should continue your aspirin and statin and continue to work on a healthy lifestyle. Please follow-up with her primary care provider in the next 1-2 weeks. Discharge orders & Medications Prescriptions: Continued aspirin 81 MG tablet,delayed release (DR/EC) 81 mg PO QDAY Qty: 0 RF: 0 Calcium Carbonate/Vitamin D (#CALCIUM) 1 cap PO BID Qty: 0 RF: 0 B.ANI/L.ACI/L.PRAFUL/L.PLAN/L.KO (Probiotic Formula Capsule) 1 cap PO QDAY Qty: 0 RF: 0 simvastatin 40 MG tablet 40 mg PO BEDTIME Qty: 0 RF: 0 epinephrine 0.3 mg/0.3 mL auto-injector 1 dose IM PRN PRN (Reason: Anaphylaxis) RF: 0 fluticasone propionate 50 mcg/actuation spray,suspension 2 spray Intranasal DAILY RF: 0 escitalopram oxalate 10 mg tablet 10 mg PO DAILY RF: 0 amlodipine 5 mg Tablet 5 mg PO DAILY RF: 0 famotidine [Pepcid] 20 mg Tablet 20 mg PO BID RF: 0 acetaminophen [Acetaminophen Extra Strength] 500 mg Tablet 500 mg PO Q4H PRN (Reason: Pain (Scale Score 1-3)) RF: 0 Follow up/Referrals: Gisell Farah MD [Primary Care Provider] - Discharge Health Status Health Concerns: TIA Diet/Activity/Treatments Diet: Diet as Tolerated and Low-cholesterol Activity: As tolerated Visit Report/Discharge Packet Instructions: DI for Transient Ischemic Attack Discharge Data Primary Care Provider: Gisell Farah Attending Provider: Macie Willoughby Admit Date/Time: 02/04/19 20:07 Discharges patient from system. Discharge Date/Time: 02/05/19 15:43 Quality VTE Deep Vein Thrombosis/Pulmonary Embolism Present on Admission: No
== END 2019-02-05 15:43 | disposition home or self-care (01) ==
LOC: ED 19:46 → AC 20:09
PROVIDERS: Admitting Provider Nurse Practitioner Family; Emergency Provider Emergency Medicine; PCP Internal Medicine; Visit Provider Nurse Practitioner Family
DX: R29.818 Other symptoms and signs involving the nervous system (principal); R47.1 Dysarthria and anarthria; E78.5 Hyperlipidemia, unspecified; I10 Essential (primary) hypertension; K21.9 Gastro-esophageal reflux disease without esophagitis; N18.1 Chronic kidney disease, stage 1; F32.9 Major depressive disorder, single episode, unspecified; I25.10 Atherosclerotic heart disease of native coronary artery without angina pectoris
CPT/HCPCS: 36415; 70450; 70548; 70553; 71045; 80048; 80053; 80061; 80305; 82550; 82962; 83735; 83880; 84484; 85025; 85610; 85730; 92523; 93005; 93010; 93306; 99282; 99285; G0378; J1644

== ENCOUNTER → 2019-04-01 13:43 | Outpatient (CLI) | payer MEDICARE, OTHER, SELFPAY ==
--- NOTE | 2019-04-01 | DI.MG.S_ITS ---
BILATERAL DIGITAL SCREENING MAMMOGRAM 3D/2D WITH CAD: 04/01/2019 CLINICAL: Routine screening. Comparison is made to exams dated: 03/28/2018 mammogram, 11/24/2016 mammogram, and 11/19/2015 mammogram - [facility]. The tissue of both breasts is heterogeneously dense. This may lower the sensitivity of mammography. Current study was also evaluated with a Computer Aided Detection (CAD) system. No significant masses, calcifications, or other findings are seen in either breast. There has been no significant interval change. IMPRESSION: NEGATIVE There is no mammographic evidence of malignancy. A 1 year screening mammogram is recommended. This exam was interpreted at Station ID: [id number]. NOTE: For mammograms, a report in lay terms will be sent to the patient. Approximately 15% of breast malignancies will not be visualized mammographically. In the management of a palpable breast mass, a negative mammogram must not discourage biopsy of a clinically suspicious lesion. Electronically Signed By: Ortiz moeller/piyush:04/01/2019 14:58:22 letter sent: Normal Exam ACR BI-RADS Category 1: Negative [id number]
== END ==
PROVIDERS: PCP Internal Medicine; Referring Provider Internal Medicine; Visit Provider Internal Medicine
DX: Z12.31 Encounter for screening mammogram for malignant neoplasm of breast (principal)
CPT/HCPCS: 77063; 77067

== ENCOUNTER → 2020-03-12 18:42 | Outpatient (ROUT) | payer MEDICARE, OTHER, SELFPAY ==
[2020-03-12 19:00] LABS: Add Manual Diff / Slide Review NO; Basophils Absolute Auto 0 /uL (0-100); Basophils Percent Auto 0.5 % (0-2); Eosinophils Absolute Auto 100 /uL (0-450); Eosinophils Percent Auto 0.7 % (2-4); Hematocrit 35.8 % (36-46); Hemoglobin 11.7 g/dL (12.0-16.0); Lymphocytes Absolute Auto 1600 /uL (1100-4500); Lymphocytes Percent Auto 16.4 % (25-40); Mean Corpuscular HGB Conc 32.8 % (30-36); Mean Corpuscular Hemoglobin 28.4 PG (26-34); Mean Corpuscular Volume 86.5 fL (80-100); Monocytes Absolute Auto 1100 /uL (0-900); Monocytes Percent Auto 11.6 % (3-14); Neutrophils Absolute Auto 6800 /uL (1500-7000); Neutrophils Percent Auto 70.8 % (50-75); Platelet Count 282 X10^3/uL (150-400); Red Blood Cell Count 4.14 X10^6/uL (4.0-5.2); Red Cell Distribution Width 13.3 % (11.6-14.8); White Blood Cell Count 9.6 X10^3/uL (4.5-11.0)
[2020-03-12 19:06] LABS: HEMOLYSIS < 15 (0-50); Iron 17 ug/dL (37-170)
[2020-03-12 19:14] LABS: Alanine Aminotransferase 12 IU/L (<35); Albumin 3.6 g/dL (3.5-5.0); Albumin Globulin Ratio 1.3 (1.0-2.8); Alkaline Phosphatase 64 U/L (38-126); Aspartate Aminotransferase 24 IU/L (14-36); BUN Creatinine Ratio 18.9 (6-22); Bilirubin Total 0.4 mg/dL (0.2-1.3); Blood Urea Nitrogen 21 mg/dL (7-17); Calcium 9.2 mg/dL (8.4-10.2); Carbon Dioxide 30 mmol/L (22-32); Chloride 102 mmol/L (98-107); Estimated Glomerular Filt Rate 46.7 mL/min (>60); Globulin 2.7 g/dL (1.7-4.1); Glucose 79 mg/dL (80-110); HEMOLYSIS < 15 (0-50); Potassium 4.1 mmol/L (3.4-5.1); Sodium 135 mmol/L (137-145); Total Protein 6.3 g/dL (6.3-8.2)
[2020-03-12 19:17] LABS: NT-proBNP (BNP-Adult 18+) 274 pg/mL (<450); Percent Iron Saturation 7 % (15-50); Total Iron Binding Capacity 250 ug/dL (265-497); Transferrin 176 mg/dL (206-381)
[2020-03-12 19:38] LABS: TSH w/ Reflex to FT4 0.71 uIU/mL (0.47-4.68)
[2020-03-12 19:43] LABS: Ferritin 55 ng/mL (11-264)
== END ==
PROVIDERS: PCP Internal Medicine; Visit Provider Physician Assistant
DX: R42 Dizziness and giddiness (principal); D64.9 Anemia, unspecified; N18.4 Chronic kidney disease, stage 4 (severe); I10 Essential (primary) hypertension; R06.02 Shortness of breath
CPT/HCPCS: 80053; 82728; 83540; 83550; 83880; 84443; 85025

== ENCOUNTER → 2020-03-20 10:09 | Outpatient (CLI) | payer MEDICARE, OTHER, SELFPAY ==
--- NOTE | 2020-03-20 | DI.RAD.S_ITS ---
PROCEDURE: XR CHEST 2V INDICATIONS: Dyspnea on Exertion TECHNIQUE: 2 views of the chest were acquired. COMPARISON: [facility], [facility], XR CHEST 1V, 02/04/2019, 18:53. [facility], [facility], CHEST 2 VIEW, 12/03/2010, 14:23. FINDINGS: Surgical changes and devices: None. Lungs and pleura: Lungs are clear. No pleural effusions or pneumothorax. Mediastinum: Mediastinal contours are normal. Heart size is normal. Bones and chest wall: No suspicious bony abnormalities. Soft tissues appear unremarkable. IMPRESSION: Normal for age, source of current dyspnea symptoms is not seen. Dictated by: Pedro Casiano M.D. on 03/20/2020 at 11:09 Approved by: Pedro Casiano M.D. on 03/20/2020 at 11:09
[2020-03-20 11:15] LABS: Cholesterol 146 mg/dL (140-199); HDL Cholesterol 45 mg/dL (40-60); LDL Cholesterol Calculated 78 mg/dL (<100); Triglycerides 113 mg/dL (35-150)
== END ==
PROVIDERS: PCP Internal Medicine; Referring Provider Internal Medicine; Visit Provider Internal Medicine
DX: R06.00 Dyspnea, unspecified (principal); E78.5 Hyperlipidemia, unspecified
CPT/HCPCS: 36415; 71046; 80061

== ENCOUNTER → 2020-04-03 14:45 | Outpatient (CLI) | payer MEDICARE, OTHER, SELFPAY ==
--- NOTE | 2020-04-03 | DI.MG.S_ITS ---
BILATERAL DIGITAL SCREENING MAMMOGRAM 3D/2D WITH CAD: 04/03/2020 CLINICAL: Routine screening. Comparison is made to exams dated: 04/01/2019 mammogram, 03/28/2018 mammogram, and 11/24/2016 mammogram - [facility]. The tissue of both breasts is heterogeneously dense. This may lower the sensitivity of mammography. Current study was also evaluated with a Computer Aided Detection (CAD) system. No significant masses, calcifications, or other findings are seen in either breast. There has been no significant interval change. IMPRESSION: NEGATIVE There is no mammographic evidence of malignancy. A 1 year screening mammogram is recommended. This exam was interpreted at Station ID: [id number]. NOTE: For mammograms, a report in lay terms will be sent to the patient. Approximately 15% of breast malignancies will not be visualized mammographically. In the management of a palpable breast mass, a negative mammogram must not discourage biopsy of a clinically suspicious lesion. Electronically Signed By: Wayne jade/piyush:04/03/2020 16:37:23 letter sent: Normal Exam ACR BI-RADS Category 1: Negative [id number]
== END ==
PROVIDERS: PCP Internal Medicine; Referring Provider Internal Medicine; Visit Provider Internal Medicine
DX: Z12.31 Encounter for screening mammogram for malignant neoplasm of breast (principal)
CPT/HCPCS: 77063; 77067

== ENCOUNTER → 2020-04-08 13:35 | Outpatient (CLI) | payer MEDICARE, OTHER, SELFPAY ==
--- NOTE | 2020-04-08 | DI.ECHO.S_ITS ---
[facility]---------+ [facility] +---------+ : : [address] : : : : [id number] : : : : Phone: [phone]+ Echocardiogram Report + + :Name: RADHA GILLESPIE Study Date: 04/08/2020 Height: 60 in : :[facility] ReadingLocation: Weight: 107 lb : : Gender: Female BSA: 1.4 m2 : :: 1935 Age: 84 yrs BP: 157/71 mmHg: :Reason For Study: DYSPNEA : :Ordering Physician: SRIDHAR, : :PRUDENCE Performed By: Chela Solorzano : :Referring: PRUDENCE WALLER : + + Interpretation Summary The ejection fraction is estimated to be 60-65%. There is mild mitral regurgitation. There is mild aortic regurgitation. There is mild tricuspid regurgitation. The ascending aorta is mildly enlarged. Procedure: A two-dimensional transthoracic echocardiogram with color flow and Doppler was performed. The study quality was technically adequate. Comparison is made with the echocardiogram of 02/05/2019. The patient was in sinus rhythm with heart rates between 53-62 bpm during the exam. Left Ventricle: The left ventricle is normal in size. Left ventricular wall thickness is borderline increased. The ejection fraction is estimated to be 60-65%. Left ventricular wall motion is normal. Right Ventricle: The right ventricle is normal size. Systolic function appears grossly normal. Atria: The left atrium is mildly dilated. Right atrial size is normal. There is no Doppler evidence for an interatrial shunt. Mitral Valve: The mitral valve is normal in structure and function. There is mild mitral annular calcification. There is mild mitral regurgitation. Aortic Valve: The aortic valve is trileaflet. The aortic valve opens well. The aortic valve is mildly calcified. There is no aortic valve stenosis. There is mild aortic regurgitation. Tricuspid Valve: The tricuspid valve is normal in structure and function. There is mild tricuspid regurgitation. Pulmonary artery pressures cannot be estimated because of the lack of a measurable TR jet velocity but the IVC suggests a CVP of around 3 mmHg. Pulmonic Valve: The pulmonic valve leaflets are thin and pliable; valve motion is normal. There is trace pulmonic regurgitation. Great Vessels: The aortic root is normal size. The ascending aorta is mildly enlarged. The IVC is of normal diameter and collapses greater than 50% with a sniff. This suggests a low right atrial pressure of 3 mm Hg. Pericardium/ Pleura There is no pericardial effusion. There is no pleural effusion. MMode/2D Measurements & Calculations LVIDd: 4.1 cm LVOT diam: 2.0 cm LVIDs: 2.5 cm Ao root diam: 3.2 cm FS: 37.8 % asc Aorta Diam: 3.6 cm EPSS: 0.46 cm IVSd: 1.1 cm LVPWd: 0.94 cm LV espino. diameter/BSA (cm/m^2): 2.8 LV sys. diameter/BSA (cm/m^2): 1.8 LA A2 area: 18.4 cm2 RA long axis: 4.5 cm LA A4 area: 16.5 cm2 RA area: 12.8 cm2 LA length (vol): 4.9 cm RA vol: 31.0 ml LA vol: 52.4 ml RA : 21.7 ml/m2 LA vol index: 36.6 ml/m2 RVD1 (basal): 3.2 cm Doppler Measurements & Calculations Ao V2 max: 110.3 cm/sec LVOT Max Wally: 80.7 cm/sec Ao V2 mean: 74.7 cm/sec LV V1 max P.6 mmHg Ao max P.9 mmHg LV V1 VTI: 20.6 cm Ao mean P.5 mmHg CLAUDIA(I,D): 2.4 cm2 Ao V2 VTI: 26.7 cm CLAUDIA(V,D): 2.3 cm2 sev ratio: 0.77 CLAUDIA indexed to BSA (cm^2/m^2): 1.7 AI P1/2t: 759.5 msec AI dec slope: 141.0 cm/sec2 MV E max wally: 77.8 cm/sec PA V2 max: 59.1 cm/sec MV A max wally: 89.9 cm/sec PA V2 mean: 38.4 cm/sec MV E/A: 0.87 PA mean P.69 mmHg Med Peak E' Wally: 6.5 cm/sec PA pr(Accel): 5.4 mmHg E/E' med: 11.9 Lat Peak E' Wally: 6.3 cm/sec E/E' lat: 12.4 E/e' average: 12.2 MV dec time: 0.23 sec SV(LVOT): 63.5 ml Reading Physician:05:08 PM
== END ==
PROVIDERS: PCP Internal Medicine; Referring Provider Internal Medicine; Visit Provider Internal Medicine
DX: I08.3 Combined rheumatic disorders of mitral, aortic and tricuspid valves (principal); I77.89 Other specified disorders of arteries and arterioles; R06.00 Dyspnea, unspecified
CPT/HCPCS: 93306

== ENCOUNTER → 2020-10-19 10:35 | Outpatient (CLI) | payer MEDICARE, OTHER, SELFPAY ==
--- NOTE | 2020-10-19 | DI.RAD.S_ITS ---
PROCEDURE: XR CHEST 2V INDICATIONS: SHORTNESS OF BREATH TECHNIQUE: 2 views of the chest were acquired. COMPARISON: [facility], , XR CHEST 2V, 03/20/2020, 10:22. FINDINGS: Surgical changes and devices: None. Lungs and pleura: Lungs are clear. No pleural effusions or pneumothorax. Mediastinum: Mediastinal contours are normal. Heart size is normal. Moderate aortic atherosclerotic calcifications. Bones and chest wall: No suspicious bony abnormalities. Soft tissues appear unremarkable. Degenerative changes are seen in the included spine. IMPRESSION: No acute cardiopulmonary abnormality. Dictated by: Wayne Jaquez M.D. on 10/19/2020 at 11:28 Approved by: Wayne Jaquez M.D. on 10/19/2020 at 11:29
== END ==
PROVIDERS: PCP Internal Medicine; Referring Provider Internal Medicine; Visit Provider Internal Medicine
DX: M85.852 Other specified disorders of bone density and structure, left thigh (principal); R06.02 Shortness of breath; Z78.0 Asymptomatic menopausal state; Z87.891 Personal history of nicotine dependence
CPT/HCPCS: 71046; 77080

== ENCOUNTER → 2020-10-21 08:54 | Outpatient (CLI) | payer MEDICARE, OTHER, SELFPAY ==
[2020-10-21 09:34] LABS: COVID19 -Nasal RAPID Negative (Negative)
== END ==
PROVIDERS: PCP Internal Medicine; Referring Provider Internal Medicine; Visit Provider Internal Medicine
DX: Z20.822 Contact with and (suspected) exposure to COVID-19 (principal)
CPT/HCPCS: 87635; C9803

== ENCOUNTER → 2020-10-22 08:56 | Outpatient (CLI) | payer MEDICARE, OTHER, SELFPAY ==
--- NOTE | 2020-10-31 09:41 | PM.PFT.1 ---
Pulmonary Function Test Referral & Results Date Patient Seen: 10/22/20 Requesting provider: Cherie Brock Indication: Shortness of breath Results: The spirometry demonstrates an FVC of 1.60 L which is 85% of predicted. The FEV1 was measured at 1.21 L which is 89% of predicted. The FEV1/FVC ratio was 76 which is 103% of predicted. Following the administration of bronchodilator there was no appreciable change to above normal numbers Lung volumes show an SVC of 1.77 L which is 82% of predicted. The diffusing capacity was measured at 14.14 which is 74% of predicted. No hemoglobin value was provided, so no correction for potential anemia could be made, if appropriate. The maximum voluntary ventilation was reduced slightly Interpretation: This study demonstrates probably normal spirometry. There is a mild reduction in diffusing capacity unless patient is anemic as above which suggest possibility of disease at the capillary alveolar level There is also reduction in maximum voluntary ventilation which in the setting of preserved spirometry suggests the possibility of neuromuscular disease Clinical correlation suggested
== END ==
PROVIDERS: PCP Internal Medicine; Referring Provider Internal Medicine; Visit Provider Internal Medicine
DX: R06.02 Shortness of breath (principal); J98.8 Other specified respiratory disorders; Z87.891 Personal history of nicotine dependence
CPT/HCPCS: 94060; 94726; 94729

== ENCOUNTER → 2021-10-21 14:05 | Outpatient (CLI) | payer MEDICARE, OTHER, SELFPAY ==
--- NOTE | 2021-10-21 | DI.MG.S_ITS ---
BILATERAL DIGITAL SCREENING MAMMOGRAM 3D/2D WITH CAD: 10/21/2021 CLINICAL: Routine screening. Comparison is made to exams dated: 04/03/2020 mammogram, 04/01/2019 mammogram, and 03/28/2018 mammogram - [facility]. Both breasts are heterogeneously dense, which may obscure small masses (category c / 51-75% glandular tissue). Current study was also evaluated with a Computer Aided Detection (CAD) system. There are benign diffuse calcifications in both breasts. There also are benign vascular calcifications in the right breast. No significant masses, calcifications, or other findings are seen in either breast. There has been no significant interval change. IMPRESSION: BENIGN There is no mammographic evidence of malignancy. A 1 year screening mammogram is recommended. This exam was interpreted at Station ID: [id number]. NOTE: For mammograms, a report in lay terms will be sent to the patient. Approximately 15% of breast malignancies will not be visualized mammographically. In the management of a palpable breast mass, a negative mammogram must not discourage biopsy of a clinically suspicious lesion. Electronically Signed By: Jhoana mccullough/piyush:10/21/2021 14:53:08 letter sent: Normal Exam ACR BI-RADS Category 2: Benign Finding(s) 3342F
== END ==
PROVIDERS: PCP Internal Medicine; Referring Provider Internal Medicine; Visit Provider Internal Medicine
DX: Z12.31 Encounter for screening mammogram for malignant neoplasm of breast (principal)
CPT/HCPCS: 77063; 77067

== ENCOUNTER → 2022-01-10 16:39 | Outpatient (CLI) | payer MEDICARE, SELFPAY ==
[2022-01-10 17:40] LABS: Influenza A - CEPHEID Flu A NEGATIVE (NEGATIVE); Influenza B - CEPHEID Flu B NEGATIVE (NEGATIVE); Respiratory Syncytial Virus POSITIVE (Negative)
[2022-01-10 17:42] LABS: COVID-19 CEPHEID 4-PLEX PCR Negative (Negative)
== END ==
PROVIDERS: PCP Internal Medicine; Visit Provider Nurse Practitioner Family
DX: R06.02 Shortness of breath (principal)
CPT/HCPCS: 0241U

== ENCOUNTER → 2022-01-10 16:57 | Outpatient (CLI) | payer MEDICARE, SELFPAY ==
--- NOTE | 2022-01-10 17:01 | DI.RAD.S_ITS ---
PROCEDURE: XR CHEST 2V INDICATIONS: cough TECHNIQUE: 2 views of the chest were acquired. COMPARISON: [facility], CR, XR CHEST 2V, 10/19/2020, 10:46. FINDINGS: Surgical changes and devices: None. Lungs and pleura: Lungs are clear. No pleural effusions or pneumothorax. Mediastinum: Mediastinal contours are normal. Heart size is normal. Bones and chest wall: No suspicious bony abnormalities. Soft tissues appear unremarkable. IMPRESSION: No acute pulmonary process. Dictated by: Rhina Chapman M.D. on 01/11/2022 at 15:47 Approved by: Rhina Chapman M.D. on 01/11/2022 at 15:48
== END ==
PROVIDERS: PCP Internal Medicine; Referring Provider Nurse Practitioner Family; Visit Provider Nurse Practitioner Family
DX: R05.9 Cough, unspecified (principal); R06.02 Shortness of breath
CPT/HCPCS: 0241U; 71046

== ENCOUNTER → 2022-03-04 11:40 | Outpatient (CLI) | payer MEDICARE, SELFPAY ==
--- NOTE | 2022-03-04 | DI.MRI.S_ITS ---
PROCEDURE: MR CERVICAL SPINE WO CON INDICATIONS: Paresthesia of skin TECHNIQUE: Noncontrast sagittal T1 spin echo and T2 fast spin echo, sagittal STIR, foraminal oblique sagittal T2 fast spin echo, and axial gradient echo or T2 fast spin echo through the cervical spine. COMPARISON: [facility], MR, C-SPINE WITHOUT CONTRAST, 07/16/2014, 8:33. FINDINGS: Alignment and Curvature: Degenerative grade 1 anterior spondylolisthesis at C5-6 Bone Marrow: Marrow demonstrates normal overall signal. Spinal Cord: Visualized spinal cord has normal size and signal. No cerebellar tonsillar herniation. Paraspinous Soft Tissues: No paravertebral masses. Prevertebral soft tissues are normal in thickness. C2-C3: Normal appearance. C3-C4: Disc space narrowing with hypertrophic uncovertebral joints present. No central stenosis. Moderate bilateral foraminal stenosis C4-C5: Disc space narrowing with hypertrophic facet joints present. No central stenosis. Moderate right and no left foraminal stenosis C5-C6: Disc space narrowing with hypertrophic facet joints. No central or foraminal stenosis C6-C7: Disc space narrowing posterior disc osteophyte complex and ligamentum flavum laxity combined result in mild central stenosis. No foraminal stenosis C7-T1: Normal appearance. IMPRESSION: Multilevel degenerative disc disease and arthropathy results in varying degrees of central and foraminal stenosis including moderate foraminal stenosis C3-4 and C4-5 Approved by: Erwin Rodgers M.D. on 03/04/2022 at 14:33
== END ==
PROVIDERS: PCP Internal Medicine; Referring Provider Orthopaedic Surgery; Visit Provider Orthopaedic Surgery
DX: M47.812 Spondylosis without myelopathy or radiculopathy, cervical region (principal); M50.31 Other cervical disc degeneration, high cervical region; M48.02 Spinal stenosis, cervical region; R20.2 Paresthesia of skin; R20.0 Anesthesia of skin
CPT/HCPCS: 72141

== ENCOUNTER → 2022-10-26 13:19 | Outpatient (CLI) | payer MEDICARE, SELFPAY ==
--- NOTE | 2022-10-26 | DI.MG.S_ITS ---
BILATERAL DIGITAL SCREENING MAMMOGRAM 3D/2D WITH CAD: 10/26/2022 CLINICAL: Routine screening. Comparison is made to exams dated: 10/21/2021 mammogram, 04/03/2020 mammogram, 04/01/2019 mammogram, and 03/28/2018 mammogram - [facility]. Both breasts are heterogeneously dense, which may obscure small masses (category c / 51-75% glandular tissue). Current study was also evaluated with a Computer Aided Detection (CAD) system. There are benign diffuse calcifications in both breasts. There also are benign vascular calcifications in the right breast. No significant masses, calcifications, or other findings are seen in either breast. There has been no significant interval change. IMPRESSION: BENIGN There is no mammographic evidence of malignancy. A 1 year screening mammogram is recommended. This exam was interpreted at Station ID: [id number]. NOTE: For mammograms, a report in lay terms will be sent to the patient. Approximately 15% of breast malignancies will not be visualized mammographically. In the management of a palpable breast mass, a negative mammogram must not discourage biopsy of a clinically suspicious lesion. Electronically Signed By: Meir casey/piyush:10/26/2022 17:31:43 letter sent: Normal Exam ACR BI-RADS Category 2: Benign Finding(s) 3342F
== END ==
PROVIDERS: PCP Internal Medicine; Referring Provider Internal Medicine; Visit Provider Internal Medicine
DX: Z12.31 Encounter for screening mammogram for malignant neoplasm of breast (principal)
CPT/HCPCS: 77063; 77067

== ENCOUNTER → 2023-02-21 12:00 | Outpatient (CLI) | payer MEDICARE, SELFPAY ==
--- NOTE | 2023-02-21 | DI.RAD.S_ITS ---
PROCEDURE: XR CHEST 2V INDICATIONS: COPD, cough TECHNIQUE: 2 views of the chest were acquired. COMPARISON: [facility], CR, XR CHEST 2V, 01/10/2022, 17:04. FINDINGS: Surgical changes and devices: None. Lungs and pleura: Lungs are clear. Hyperexpansion of the lungs with flattening of the diaphragm suggestive of obstructive pulmonary disease. No pleural effusions or pneumothorax. Mediastinum: Mediastinal contours are normal. Heart size is normal. Calcification of the thoracic and abdominal aorta. Bones and chest wall: No suspicious bony abnormalities. Soft tissues appear unremarkable. IMPRESSION: No acute cardiopulmonary abnormality is seen. Dictated by: Trevor Marsh M.D. on 02/21/2023 at 17:25 Approved by: Trevor Marsh M.D. on 02/21/2023 at 17:30
== END ==
PROVIDERS: PCP Internal Medicine; Referring Provider Internal Medicine; Visit Provider Internal Medicine
DX: J44.9 Chronic obstructive pulmonary disease, unspecified (principal); R05.9 Cough, unspecified
CPT/HCPCS: 71046

== ENCOUNTER 2023-06-10 15:33 | Emergency (ER) | payer MEDICARE, SELFPAY ==
[2023-06-10] VITALS (14 sets, daily range): BP systolic 112–161; BP diastolic 57–75; PULSE 72–93; RESP 12–24; TEMP 36.9–37.7; O2SAT 91–96; BMI 20.7
--- NOTE | 2023-06-10 15:44 | DI.RAD.S_ITS ---
PROCEDURE: XR CHEST 2V INDICATIONS: cough, COPD, please evaluate for PNA TECHNIQUE: 2 views of the chest were acquired. COMPARISON: [facility], CR, XR CHEST 2V, 01/10/2022, 17:04. [facility], CR, XR CHEST 2V, 02/21/2023, 12:11. FINDINGS: Surgical changes and devices: None. Lungs and pleura: Mild generalized interstitial prominence can be seen. No focal infiltrates are seen. No pleural effusions or pneumothorax. Mediastinum: The cardiac contours are within normal limits. The aorta demonstrates calcification and tortuosity. Bones and chest wall: No suspicious bony abnormalities. Age-appropriate bony degenerative changes are seen. Accentuated thoracic kyphosis is seen. Soft tissues appear unremarkable. IMPRESSION: There is mild generalized interstitial prominence. Differential diagnosis includes baseline parenchymal coarsening and mild pulmonary edema. No superimposed focal infiltrates are seen. Dictated by: Gilmar Rangel M.D. on 06/10/2023 at 15:13 Approved by: Gilmar Rangel M.D. on 06/10/2023 at 15:14
[2023-06-10 16:39] LABS: Add Manual Diff / Slide Review NO; Basophils Absolute Auto 0 /uL (0-100); Basophils Percent Auto 0.3 % (0-2); Eosinophils Absolute Auto 300 /uL (0-450); Eosinophils Percent Auto 1.5 % (2-4); Hematocrit 32.2 % (36-46); Hemoglobin 10.7 g/dL (12.0-16.0); Lymphocytes Absolute Auto 1800 /uL (1100-4500); Lymphocytes Percent Auto 11.1 % (25-40); Mean Corpuscular HGB Conc 33.4 % (30-36); Mean Corpuscular Volume 83.8 fL (80-100); Monocytes Absolute Auto 1900 /uL (0-900); Monocytes Percent Auto 11.9 % (3-14); Neutrophils Absolute Auto 12300 /uL (1500-7000); Neutrophils Percent Auto 75.2 % (50-75); Platelet Count 364 X10^3/uL (150-400); Red Blood Cell Count 3.84 X10^6/uL (4.0-5.2); Red Cell Distribution Width 12.6 % (11.6-14.8); White Blood Cell Count 16.4 X10^3/uL (4.5-11.0)
[2023-06-10 16:48] LABS: Adenovirus Not Detected (Not Detect); B. parapertussis Not Detected (Not Detecte); Bordetella pertussis Not Detected (Not Detect); Chlamydophila pneumoniae Not Detected (Not Detect); Coronavirus 229E Not Detected (Not Detect); Coronavirus HKU1 Not Detected (Not Detect); Coronavirus NL 63 Not Detected (Not Detect); Coronavirus OC43 Not Detected (Not Detect); Human Metapneumovirus Not Detected (Not Detect); Human Rhinovirus/Enterovirus Not Detected (Not Detect); Influenza A Not Detected (Not Detect); Influenza B Not Detected (Not Detect); Mycoplasma pneumoniae Not Detected (Not Detect); Parainfluenza Virus 1 Not Detected (Not Detect); Parainfluenza Virus 2 Not Detected (Not Detect); Parainfluenza Virus 3 Not Detected (Not Detect); Parainfluenza Virus 4 Not Detected (Not Detect); Respiratory Syncytial Virus Not Detected (Not Detect); SARS- CoV-2 Not Detected (Not Detecte)
[2023-06-10 16:51] LABS: INR 1.1 (0.9-1.3); Prothrombin Time 13.1 SECONDS (9.4-12.5)
[2023-06-10 16:54] LABS: PTT Partial Thromboplastin Tim 31 SECONDS (25.1-36.5)
[2023-06-10 16:56] LABS: Alanine Aminotransferase 32 IU/L (<35); Albumin 3.9 g/dL (3.5-5.0); Albumin Globulin Ratio 1.1 (1.0-2.8); Alkaline Phosphatase 91 U/L (38-126); Aspartate Aminotransferase 34 IU/L (14-36); BUN Creatinine Ratio 12.3 (6-22); Bilirubin Total 0.5 mg/dL (0.2-1.3); Blood Urea Nitrogen 19 mg/dL (7-17); Calcium 9.5 mg/dL (8.4-10.2); Carbon Dioxide 26 mmol/L (22-32); Chloride 103 mmol/L (98-107); Creatine Kinase 54 U/L (30-135); Estimated Glomerular Filt Rate 32 mL/min (>60); Globulin 3.5 g/dL (1.7-4.1); Glucose 95 mg/dL (80-110); HEMOLYSIS < 15 (0-50); Lipase 100 U/L (23-300); Magnesium 2.1 mg/dL (1.6-2.3); Potassium 4.2 mmol/L (3.4-5.1); Sodium 135 mmol/L (137-145); Total Protein 7.4 g/dL (6.3-8.2)
[2023-06-10 17:08] LABS: Troponin I < 0.012 ng/mL (0.01-0.034)
--- NOTE | 2023-06-10 18:12 | ED.FEVER ---
HPI - Fever General Chief Complaint: Fever Stated Complaint: FEVER/HAS copd Time Seen by Provider: 06/10/23 17:46 Source: patient Mode of arrival: Ambulatory History of Present Illness HPI Narrative: 87-year-old female with history of hypertension, COPD not on O2 presents by private vehicle for several days of fever and productive cough. Temperature up to 103F at home. Patient took tylenol prior to arrival. Went to walk-in clinic yesterday and was told that her cough was secondary to post-nasal drip. Family is concerned that she may have pneumonia. Related Data Home Medications Medication Instructions Recorded Confirmed B.ANI/L.ACI/L.PRAFUL/L.PLAN/L.KO 1 cap PO QDAY ##0 12/03/10 06/10/23 (Probiotic Formula Capsule) Calcium Carbonate/Vitamin D 1 cap PO BID ##0 12/03/10 06/10/23 (#CALCIUM) aspirin 81 mg tablet,delayed 81 mg PO QDAY ##0 12/03/10 06/10/23 release epinephrine 0.3 mg/0.3 mL 1 dose IM PRN PRN Anaphylaxis 12/13/17 06/10/23 injection, auto-injector escitalopram oxalate 10 mg tablet 10 mg PO DAILY 12/13/17 06/10/23 fluticasone propionate 50 2 spray intranasal DAILY 12/13/17 06/10/23 mcg/actuation nasal spray,suspension amlodipine 5 mg tablet 5 mg PO DAILY 12/24/18 06/10/23 famotidine 20 mg tablet (Pepcid) 20 mg PO BID 12/24/18 06/10/23 acetaminophen 500 mg tablet 500 mg PO Q4H PRN Pain (Scale 12/27/18 06/10/23 (Acetaminophen Extra Strength) Score 1-3) budesonide 90 mcg/actuation breath 1 inh inhalation BID 03/03/23 06/10/23 activated powder inhaler (Pulmicort Flexhaler) umeclidinium 62.5 mcg/actuation 1 inh inhalation DAILY 03/03/23 06/10/23 blister powder for inhalation (Incruse Ellipta) Previous Rx's Medication Instructions Recorded fluticasone furoate 100 1 inh inhalation DAILY #60 ea 05/17/23 mcg-vilanterol 25 mcg/dose inhalation powder amoxicillin 875 mg-potassium 1 tab PO Q12H #10 tabs 06/10/23 clavulanate 125 mg tablet amoxicillin 875 mg-potassium 1 tab PO Q12H #10 tabs 06/10/23 clavulanate 125 mg tablet azithromycin 250 mg tablet See Rx Instructions PO .COMPLEX #6 06/10/23 tabs azithromycin 250 mg tablet See Rx Instructions PO .COMPLEX #6 06/10/23 tabs benzonatate 200 mg capsule 200 mg PO BID-TID PRN cough #30 06/10/23 caps benzonatate 200 mg capsule 200 mg PO BID-TID PRN cough #30 06/10/23 caps Allergies Allergy/AdvReac Type Severity Reaction Status Date / Time gluten [GLUTEN] Allergy Severe diarrhea Verified 06/10/23 08:02 oxycodone AdvReac Severe Nausea, Verified 06/10/23 08:02 constipation vomiting Review of Systems Review of Systems Narrative: See HPI Patient History Medical History Kidney disease GERD (gastroesophageal reflux disease) HLD (hyperlipidemia) Osteopenia SCC (squamous cell carcinoma) (~2017) HTN (hypertension) Surgical History S/P carpal tunnel release Hx of tonsillectomy Hx of arthroscopy of knee Hx of bilateral cataract extraction Family History Sister Age: 100 Bone cancer Father Myocardial infarct Mother Old age Social History household members: caregiver and none Smoking Status: Former smoker alcohol intake: current Smoking Status: Former smoker alcohol intake frequency: holidays/special occasions only Substance Use Type: does not use Exam Initial Vital Signs Initial Vital Signs: Vital Signs Temperature 99.9 F H 06/10/23 15:36 Pulse Rate 90 06/10/23 15:36 Respiratory Rate 24 06/10/23 15:36 Blood Pressure 143/60 H 06/10/23 15:36 Pulse Oximetry 95 06/10/23 15:36 Oxygen Delivery Method Room Air 06/10/23 15:36 Const: Awake, alert, no acute distress, frail Cardiac: regular rate, regular rhythm RESP: unlabored, faint bibasilar crackles, no wheezing GI: Soft, nontender, nondistended Skin: Warm, Dry, intact, no rashes Neuro: AO x3, CN II-XII grossly intact, moves all extremities Course Orders Ordered: ED Orders 06/10/23 19:20 Urinalysis and Microscopic Stat Urine Culture Stat Discontinued Medications Doxycycline Hyclate (Doxycycline Hyclate 100 Mg Tablet) 100 mg PO NOW ONE Stop: 06/10/23 20:20 Last Admin: 06/10/23 20:36 Dose: 100 mg Documented By: NATE Vital Signs Vital signs: Vital Signs - 8 hr 06/10/23 20:30 06/10/23 20:30 Pulse Rate 74 Respiratory Rate 18 Blood Pressure 134/65 Pulse Oximetry 96 MDM - Fever Differential Diagnosis Differential diagnosis: Likely fever of unknown origin, community acquired pneumonia and viral infection Lab Data 06/10/23 16:10 06/10/23 16:10 Labs: Lab Results 06/10/23 06/10/23 06/10/23 Range/Units 15:45 16:10 19:20 WBC 16.4 H (4.5-11.0) X10^3/uL RBC 3.84 L (4.0-5.2) X10^6/uL Hgb 10.7 L (12.0-16.0) g/dL Hct 32.2 L (36-46) % MCV 83.8 (80-100) fL MCH 28.0 (26-34) PG MCHC 33.4 (30-36) % RDW 12.6 (11.6-14.8) % Plt Count 364 (150-400) X10^3/uL Neut % (Auto) 75.2 H (50-75) % Lymph % (Auto) 11.1 L (25-40) % [place] % (Auto) 11.9 (3-14) % Eos % (Auto) 1.5 L (2-4) % Baso % (Auto) 0.3 (0-2) % Neut # (Auto) 55487 H (7657-9459) /uL Lymph # (Auto) 1800 (0936-2676) /uL [place] # (Auto) 1900 H (0-900) /uL Eos # (Auto) 300 (0-450) /uL Baso # (Auto) 0 (0-100) /uL PT 13.1 H (9.4-12.5) SECONDS INR 1.1 (0.9-1.3) APTT 31 (25.1-36.5) SECONDS Sodium 135 L (137-145) mmol/L Potassium 4.2 (3.4-5.1) mmol/L Chloride 103 (98-107) mmol/L Carbon Dioxide 26 (22-32) mmol/L BUN 19 H (7-17) mg/dL Creatinine 1.54 H (0.52-1.04) mg/dL Estimated GFR 32 L (>60) mL/min BUN/Creatinine Ratio 12.3 (6-22) Glucose 95 (80-110) mg/dL Calcium 9.5 (8.4-10.2) mg/dL Magnesium 2.1 (1.6-2.3) mg/dL Total Bilirubin 0.5 (0.2-1.3) mg/dL AST 34 (14-36) IU/L ALT 32 (<35) IU/L Alkaline Phosphatase 91 (38-126) U/L Total Creatine Kinase 54 (30-135) U/L Troponin I < 0.012 (0.01-0.034) ng/mL Total Protein 7.4 (6.3-8.2) g/dL Albumin 3.9 (3.5-5.0) g/dL Globulin 3.5 (1.7-4.1) g/dL Albumin/Globulin Ratio 1.1 (1.0-2.8) Lipase 100 (23-300) U/L Urine Color Yellow Urine Appearance Clear Urine pH 5.0 (4.5-8.0) Ur Specific [place] <=1.005 (1.000-1.035) Urine Protein Trace H (Negative) Urine Glucose (UA) Negative (Negative) g/dL Urine Ketones Negative (NEGATIVE) Urine Occult Blood Negative (Negative) Urine Nitrate Negative (Negative) Urine Bilirubin Negative (NEGATIVE) Urine Urobilinogen 0.2 (0.2) E.U./dL Ur Leukocyte Esterase 1+ H (NEGATIVE) Urine RBC 0-1/hpf (0-5/HPF) Urine WBC 1-5/hpf (0-5/HPF) Ur Squamous Epith Cells 1-5 /hpf (0-5/HPF) Urine Bacteria Occasional (0-1) (None) Granular Casts 0-1/lpf (None) Urine Mucus 1+ H (Negative) Ur Culture Indicated? Specimen cultured Vol Urine Centrifuged 10ml (spun) Chlamy pneumoniae PCR Not detected (Not Detect) Adenovirus (PCR) Not detected (Not Detect) B.parapertussis DNA PCR Not detected (Not Detecte) Coronavirus OC43 (PCR) Not detected (Not Detect) Coronavirus HKU1 (PCR) Not detected (Not Detect) Coronavirus 229E (PCR) Not detected (Not Detect) SARS-CoV-2 (PCR) Not detected (Not Detecte) Coronavirus NL63 (PCR) Not detected (Not Detect) Human Metapneumovir PCR Not detected (Not Detect) Influenza Type A (PCR) Not detected (Not Detect) Influenza Type B (PCR) Not detected (Not Detect) M. pneumoniae (PCR) Not detected (Not Detect) Parainfluenza 1 (PCR) Not detected (Not Detect) Parainfluenza 2 (PCR) Not detected (Not Detect) Parainfluenza 3 (PCR) Not detected (Not Detect) Parainfluenza 4 (PCR) Not detected (Not Detect) RSV (PCR) Not detected (Not Detect) Entero/Rhino (PCR) Not detected (Not Detect) Imaging Data Chest x-ray: Radiologist's Impression: PROCEDURE: XR CHEST 2V INDICATIONS: cough, COPD, please evaluate for PNA TECHNIQUE: 2 views of the chest were acquired. COMPARISON: [facility], XR CHEST 2V, 01/10/2022, 17:04. [facility], XR CHEST 2V, 02/21/2023, 12:11. FINDINGS: Surgical changes and devices: None. Lungs and pleura: Mild generalized interstitial prominence can be seen. No focal infiltrates are seen. No pleural effusions or pneumothorax. Mediastinum: The cardiac contours are within normal limits. The aorta demonstrates calcification and tortuosity. Bones and chest wall: No suspicious bony abnormalities. Age-appropriate bony degenerative changes are seen. Accentuated thoracic kyphosis is seen. Soft tissues appear unremarkable. IMPRESSION: There is mild generalized interstitial prominence. Differential diagnosis includes baseline parenchymal coarsening and mild pulmonary edema. No superimposed focal infiltrates are seen. Dictated by: Gilmar Rangel M.D. on 06/10/2023 at 15:13 Approved by: Gilmar Rangel M.D. on 06/10/2023 at 15:14 MDM Narrative Medical decision making narrative: Nontoxic patient presenting for multiple days of fevers. She was afebrile currently in the emergency department, however she did take Tylenol prior to arrival. No wheezing heard on pulmonary exam, faint bibasilar crackles on inspiration heard. Vital signs stable on room air and patient is resting comfortably in ED bed. Laboratory work significant for WBC count 16.4, hemoglobin 10.7, platelets 364, sodium 135, potassium 4.2, creatinine 1.54 (no recent prior for comparison), troponin undetectable. Chest x-ray reviewed, there is mild generalized interstitial prominence. Differential includes mild pulmonary edema, however patient does not appear to be volume overloaded and has no edema present. With fever and leukocytosis question if this is atypical pneumonia. Ambulatory pulse ox remains above 95% on room air. We will treat patient for pneumonia empirically with Augmentin and azithromycin since she does have a history of COPD. Antibiotics sent to pharmacy of choice. Discharge Plan Departure Patient Disposition: Home Clinical Impression: Pneumonia Instructions: DI for Pneumonia -- Adult Activity Restrictions/Additional Instructions: Your laboratory work today showed a slightly elevated white blood cell count. Your chest x-ray was questionable if there was pneumonia or not, however due to your labs and your age as well as history of COPD I will be sending you home on antibiotics. Take all these antibiotics as prescribed. Take Tylenol as needed for fever. Follow up with your primary care physician. Prescriptions: New amoxicillin-pot clavulanate 875-125 mg tablet 1 tab PO Q12H Qty: 10 0RF azithromycin 250 mg tablet See Rx Instructions .ROUTE .COMPLEX Qty: 6 0RF Rx Instructions: For 250 mg dose pack: take 500 mg today (day 1), then 250 mg for 4 days (days 2-5) benzonatate 200 mg capsule 200 mg PO BID-TID PRN (Reason: cough) Qty: 30 0RF azithromycin 250 mg tablet See Rx Instructions .ROUTE .COMPLEX Qty: 6 0RF Rx Instructions: For 250 mg dose pack: take 500 mg today (day 1), then 250 mg for 4 days (days 2-5) amoxicillin-pot clavulanate 875-125 mg tablet 1 tab PO Q12H Qty: 10 0RF benzonatate 200 mg capsule 200 mg PO BID-TID PRN (Reason: cough) Qty: 30 0RF No Action aspirin 81 MG tablet,delayed release (DR/EC) 81 mg PO QDAY Qty: 0 Calcium Carbonate/Vitamin D (#CALCIUM) 1 cap PO BID Qty: 0 B.ANI/L.ACI/L.PRAFUL/L.PLAN/L.KO (Probiotic Formula Capsule) 1 cap PO QDAY Qty: 0 epinephrine 0.3 mg/0.3 mL auto-injector 1 dose IM PRN PRN (Reason: Anaphylaxis) Patient Comments: U UTD DURING ANAPHYLACTIC REACTION. fluticasone propionate 50 mcg/actuation spray,suspension 2 spray Intranasal DAILY Patient Comments: SW AND INSTILL 2 SPRAYS IN EACH NOSTRIL QD DIRECTED escitalopram oxalate 10 mg tablet 10 mg PO DAILY Patient Comments: TK 1 T PO ONCE A DAY. amlodipine 5 mg Tablet 5 mg PO DAILY famotidine [Pepcid] 20 mg Tablet 20 mg PO BID acetaminophen [Acetaminophen Extra Strength] 500 mg Tablet 500 mg PO Q4H PRN (Reason: Pain (Scale Score 1-3)) Pulmicort Flexhaler 90 mcg/actuation aerosol powdr breath activated 1 inh inhalation BID Incruse Ellipta 62.5 mcg/actuation blister with device 1 inh inhalation DAILY fluticasone furoate-vilanterol 100-25 mcg/dose blister with device 1 inh inhalation DAILY Qty: 60 11RF Referrals: Cherie Brock MD [Primary Care Provider] - Stand Alone Forms: Patient Portal/API
[2023-06-10 19:41] LABS: Appearance Urine UA CLEAR; Bilirubin Urine UA NEGATIVE (NEGATIVE); Color Urine UA YELLOW; Glucose Urine UA NEGATIVE (Negative); Ketones Urine UA NEGATIVE (NEGATIVE); Leukocyte Esterase Urine UA 1+ (NEGATIVE); Nitrite Urine UA NEGATIVE (Negative); Occult Blood Urine UA NEGATIVE (Negative); Protein Urine UA TRACE (Negative); Specific Gravity Urine UA <=1.005 (1.000-1.035); Urobilinogen Urine UA 0.2 E.U./dL (0.2)
[2023-06-10 19:48] LABS: Bacteria Urine Occasional (0-1); Culture Indicated Urine Specimen Cultured; Granular Casts Urine 0-1/LPF; Mucus Urine 1+ (Negative); RBC Urine 0-1/HPF (0-5/HPF); Squamous Epithelial Cell Urine 1-5 /HPF (0-5/HPF); Urine Volume 10mL (spun); WBC Urine 1-5/HPF (0-5/HPF)
[2023-06-10] MEDS: DOXYCYCLINE HYCLATE 100 MG TABLET PO (20:36)
== END 2023-06-10 20:50 | disposition home or self-care (01) ==
PROVIDERS: Emergency Medicine; Emergency Provider Emergency Medicine; PCP Internal Medicine
DX: J18.9 Pneumonia, unspecified organism (principal); Z20.822 Contact with and (suspected) exposure to COVID-19
CPT/HCPCS: 0241U; 36415; 71046; 80053; 81001; 82550; 83690; 83735; 84484; 85025; 85610; 85730; 87040; 87086; 87633; 93005; 93010; 99284

== ENCOUNTER → 2023-06-30 12:46 | Outpatient (CLI) | payer MEDICARE, SELFPAY ==
--- NOTE | 2023-06-30 12:58 | DI.RAD.S_ITS ---
PROCEDURE: XR CHEST 2V INDICATIONS: COUGH TECHNIQUE: 2 views of the chest were acquired. COMPARISON: [facility], CR, XR CHEST 2V, 06/10/2023, 15:46. FINDINGS: Surgical changes and devices: None. Lungs and pleura: There is hyperinflation and chronic interstitial changes without focal infiltrate, pleural effusion or pneumothorax. Mediastinum: Mediastinal contours are normal. Heart size is normal. Atherosclerotic vascular calcification noted in the aortic arch. Bones and chest wall: No suspicious bony abnormalities. Soft tissues appear unremarkable. IMPRESSION: No acute cardiopulmonary abnormality is seen. Approved by: Erwin Rodgers M.D. on 06/30/2023 at 19:23
== END ==
LOC: RAD 12:57
PROVIDERS: PCP Internal Medicine; Referring Provider Physician Assistant; Visit Provider Physician Assistant
DX: R05.9 Cough, unspecified (principal)
CPT/HCPCS: 71046

== ENCOUNTER → 2023-11-13 12:59 | Outpatient (CLI) | payer MEDICARE, OTHER, SELFPAY ==
--- NOTE | 2023-11-13 | DI.MG.S_ITS ---
BILATERAL DIGITAL SCREENING MAMMOGRAM 3D/2D WITH CAD: 11/13/2023 CLINICAL: Routine screening. Comparison is made to exams dated: 10/26/2022 mammogram, 10/21/2021 mammogram, and 04/03/2020 mammogram - [facility]. The breasts are heterogeneously dense, which may obscure small masses (category c / 51-75% glandular tissue). Current study was also evaluated with a Computer Aided Detection (CAD) system. No significant masses, calcifications, or other findings are seen in either breast. There has been no significant interval change. IMPRESSION: NEGATIVE There is no mammographic evidence of malignancy. A 1 year screening mammogram is recommended. This exam was interpreted at Station ID: [id number]. NOTE: For mammograms, a report in lay terms will be sent to the patient. Approximately 15% of breast malignancies will not be visualized mammographically. In the management of a palpable breast mass, a negative mammogram must not discourage biopsy of a clinically suspicious lesion. Electronically Signed By: Mckenzie Smith M.D., Ph.D. /piyush:11/14/2023 10:09:37 letter sent: Normal Exam ACR BI-RADS Category 1: Negative 3341F
== END ==
PROVIDERS: PCP Internal Medicine; Referring Provider Internal Medicine; Visit Provider Internal Medicine
DX: Z12.31 Encounter for screening mammogram for malignant neoplasm of breast (principal); R92.333 Mammographic heterogeneous density, bilateral breasts
CPT/HCPCS: 77063; 77067

== ENCOUNTER 2024-08-14 17:21 | Emergency (ER) | payer MEDICARE, SELFPAY ==
[2024-08-14 17:33] VITALS: BP 149/66; PULSE 77; RESP 20; TEMP 36.3; O2SAT 97
--- NOTE | 2024-08-14 17:40 | DI.CT.S_ITS ---
PROCEDURE: CT CERVICAL SPINE WO CON INDICATIONS: glf TECHNIQUE: Noncontrast 3 mm thick sections acquired from the skull base to the T4 level. Sagittal and coronal reformats were then constructed. For radiation dose reduction, the following was used: automated exposure control, adjustment of mA and/or kV according to patient size. COMPARISON: None. FINDINGS: Image quality: Excellent. Bones: The craniocervical junction is intact. Mild degenerative space loss and spurring at the atlantodental interval. No cervical vertebral body fractures or pathologic subluxation. Multilevel degenerative disc height loss, most severe at C6-7. Multilevel mild endplate spurring and irregularity. Trace anterolisthesis C7-T1 due to chronic appearing facet arthropathy. There is otherwise straightening of the normal cervical lordosis, most likely due to muscle spasm. Soft tissues: Prevertebral soft tissues are normal in thickness. No paravertebral hematomas. No apical pneumothoraces. IMPRESSION: No CT evidence of acute cervical spine injury. Degenerative changes as described. Dictated by: Zofia Stanton M.D. on 08/14/2024 at 18:01 Approved by: Zofia Stanton M.D. on 08/14/2024 at 18:04
--- NOTE | 2024-08-14 17:40 | DI.CT.S_ITS ---
PROCEDURE: CT HEAD/BRAIN WO CON INDICATIONS: glf TECHNIQUE: Noncontrast 4.5 mm thick angled axial sections acquired from the foramen magnum to the vertex, with coronal and sagittal reformats. For radiation dose reduction, the following was used: automated exposure control, adjustment of mA and/or kV according to patient size. COMPARISON: [facility], CT, CT HEAD/BRAIN WO CON, 02/04/2019, 18:09. FINDINGS: Image quality: Diagnostic. CSF spaces: Basal cisterns are patent. No extra-axial fluid collections. The ventricles are symmetric in size and shape. Brain: No intracranial bleeds or mass effect. There is cerebral volume loss, with resultant ventricular and sulcal prominence. There are periventricular and deep white matter chronic small vessel ischemic changes. There is intracranial internal carotid artery atherosclerosis. Skull and face: Moderate-sized right posterior parieto-occipital hematoma without underlying calvarial fracture. No radiodense foreign bodies in the soft tissue. Sinuses: Visualized sinuses and mastoids are clear. IMPRESSION: No acute intracranial trauma. Right posterior subgaleal hematoma without underlying fracture. Dictated by: Zofia Stanton M.D. on 08/14/2024 at 17:58 Approved by: Zofia Stanton M.D. on 08/14/2024 at 18:00
[2024-08-14] MEDS: ACETAMINOPHEN 325 MG TABLET 650 MG PO (21:12)
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
[2024-08-14 21:28] VITALS: BP 144/65; PULSE 90; RESP 14; O2SAT 96
== END 2024-08-14 21:29 | disposition home or self-care (01) ==
PROVIDERS: Emergency Provider Emergency Medicine; PCP Internal Medicine
DX: S00.03XA Contusion of scalp, initial encounter (principal); S70.01XA Contusion of right hip, initial encounter; W18.30XA Fall on same level, unspecified, initial encounter
CPT/HCPCS: 70450; 72125; 99283; 99284